=== PATIENT | male | born 1970 | race Caucasian/White ===

== ENCOUNTER 2017-02-17 13:40 | Emergency (ER) | payer SELFPAY ==
[~2017-02-17] VITALS: Ht 172.7 cm; Wt 81.0 kg
[~2017-02-17 13:40] MED LIST: BACT800T5 PO; CEPH-460 PO; DICL75TA PO; HYDR-3533 PO
[2017-02-17 13:44] VITALS: BP 132/81; PULSE 101; RESP 17; TEMP 98.6; O2SAT 98
--- NOTE | 2017-02-17 13:46 | PD ---
Physical Exam Date Seen by Provider: Feb 17, 2017 Time Seen by Provider: 13:45 Narrative 46 YOWM C/O SI AND ALCOHOL INTOXICATION H/O ALCOHOL ABUSE. VS REVIEWED WAITING FOR BED PLACEMENT Data Data Last Documented VS Vital Signs Date Time Temp Pulse Resp B/P Pulse Ox O2 Delivery O2 Flow Rate FiO2 02/17/17 13:44 98.6 101 17 132/81 98 MDM Supervised Visit with PAOLO: Raheel Irvin Feb 17, 2017 13:46
== END 2017-02-17 16:15 | disposition left against medical advice (07) ==
LOC: NED 13:40
DX: R45.851 Suicidal ideations (principal); F10.129 Alcohol abuse with intoxication, unspecified; Z53.21 Procedure and treatment not carried out due to patient leaving prior to being seen by health care provider
CPT/HCPCS: 99281

== ENCOUNTER 2017-02-17 20:09 | Emergency (ER) | payer SELFPAY ==
[~2017-02-17] VITALS: Ht 172.7 cm; Wt 70.0 kg
--- NOTE | 2017-02-17 20:34 | PD ---
HPI Chief Complaint: shortness of breath Time Seen by Provider: 20:27 Travel History International Travel<30 days: No Contact w/Intl Traveler<30days: No Traveled to known affect area: No History of Present Illness HPI 46-year-old male brought in by PD after complaining of chest pain after being arrested today. The patient was found huffing dust cell cleaner. On his way to the prison he told the police manager that he was having pain in his chest and wanted to go to the emergency department. When asked the patient about his chest pain he tells me it feels like anxiety. When I asked him to describe the pain a little bit further, he tells me that it is sharp. He is not sure if he has history of cardiac disease. He smokes. He denies doing any other drugs such as cocaine or crack. He tells me that he feels as though his sinuses are dripping and that he is having a difficult time breathing. PFSH Past Medical History Anxiety: Yes (HAS A HISTORY OF ANXIETY ATTACKS) Depression: Yes Diabetes: No Diminished Hearing: No Implanted Vascular Access Dvce: No Musculoskeletal: Yes (STS CHRONIC BACK PAIN) Psychiatric: Yes Social History Alcohol Use: Yes (12 PACK DAILY) Tobacco Use: Yes (PACK PER DAY) Substance Use: No Allergies-Medications (Allergen,Severity, Reaction): Coded Allergies: No Known Allergies (Verified , 02/17/17) Reported Meds & Prescriptions Reported Meds & Active Scripts Active No Active Prescriptions or Reported Medications Review of Systems Except as stated in HPI: all other systems reviewed are Neg Physical Exam Narrative GENERAL: Well-developed, well-nourished, comfortable, no apparent distress. SKIN: Focused skin assessment warm/dry. HEAD: Atraumatic. Normocephalic. EYES: Pupils equal and round. No scleral icterus. No injection or drainage. ENT: Mucous membranes pink and moist. NECK: Trachea midline. No JVD. CARDIOVASCULAR: Regular rate and rhythm. RESPIRATORY: No accessory muscle use. Clear to auscultation. Breath sounds equal bilaterally. GASTROINTESTINAL: Abdomen soft, non-tender, nondistended. MUSCULOSKELETAL: No obvious deformities. No clubbing. No cyanosis. No edema. NEUROLOGICAL: Awake and alert. No obvious cranial nerve deficits. Motor grossly within normal limits. Normal speech. PSYCHIATRIC: Keeps eyes closed. Data Data Last Documented VS Vital Signs Date Time Temp Pulse Resp B/P Pulse Ox O2 Delivery O2 Flow Rate FiO2 02/17/17 20:49 84 20 81 Room Air 02/17/17 20:49 152/93 02/17/17 20:44 98.1 Orders Electrocardiogram (02/17/17 20:31) Basic Metabolic Panel (Bmp) (02/17/17 20:31) Ckmb (Isoenzyme) Profile (02/17/17 20:31) Complete Blood Count With Diff (02/17/17 20:31) Magnesium (Mg) (02/17/17 20:31) Prothrombin Time / Inr (Pt) (02/17/17 20:31) Act Partial Throm Time (Ptt) (02/17/17 20:31) Troponin I (02/17/17 20:31) Chest, Single Ap (02/17/17 20:31) Ecg Monitoring (02/17/17 20:31) Iv Access Insert/Monitor (02/17/17 20:31) Oximetry (02/17/17 20:31) Aspirin Chew (Aspirin Chew) (02/17/17 20:45) Sodium Chloride 0.9% Flush (Ns Flush) (02/17/17 20:45) MDM Medical Decision Making Medical Screen Exam Complete: Yes Emergency Medical Condition: Yes Medical Record Reviewed: Yes Interpretation(s) EKG: Sinus, rate 79, normal axis, normal intervals, no acute ischemic abnormality. Differential Diagnosis ACS, pneumothorax, pericarditis, PE, pneumonia, musculoskeletal chest pain Narrative Course Vital signs show heart rate 94, blood pressure 152/93, pulse ox 98% on room air , oral temp of 98.1F. At approximately 9:25 PM after the police manager who placed the patient under arrest had left, the patient decided that he no longer want stay in the hospital and would like to leave AMA. Patient is not currently under arrest, and was given a misdemeanor violation. He understands that there are risks to leaving AMA including but not limited to and permanent disability. Labs pending at time of this decision. Chest x-ray was interpreted by me and shows no free air, no pneumothorax, no infiltrates. He has a capacity to make this decision. He was told that he can return at any time and should return for worsening symptoms or any other concerns. He was instructed to follow-up with a primary care physician this week. AMA: The risks of leaving against medical advice without further evaluation treatment were discussed with the patient. These risks include cardiac dysfunction, cardiac dysrhythmia, possible heart attack, possible stroke or . The patient indicated understanding of these risks and appeared to have the capacity to make this decision. Diagnosis Primary Impression: Left against medical advice Additional Impression: Chest pain Qualified Code: R07.9 - Chest pain, unspecified type Referrals: [facility] 1 day Additional Instructions: Follow-up with a primary care physician this week. Return to the emergency department for worsening symptoms or any other concerns. Scripts No Active Prescriptions or Reported Meds Disposition: 07 AGAINST MEDICAL ADVICE Condition: Stable Coy Stephen MD Feb 17, 2017 20:34
[2017-02-17 20:44] VITALS: BP 152/93; PULSE 94; RESP 18; TEMP 98.1; O2SAT 98
[2017-02-17] MEDS ORDERED: SODIUM CHLORIDE 0.9% FLUSH 10 ML FLUSH IVF PRN (20:45)
[2017-02-17] MEDS ORDERED: ASPIRIN 81 MG CHEW TAB PO ONE (20:45)
[2017-02-17 20:49] VITALS: BP 152/93; PULSE 82; RESP 18; O2SAT 99
[2017-02-17 21:30] LABS: APTT (PATIENT) 28.7 SEC (24.3-30.1); PROTHROMBIN TIME - PATIENT 11.1 SEC (9.8-11.6)
[2017-02-17 21:44] LABS: BASOPHIL # 0.1 TH/MM3 (0-0.2); BASOPHIL % 0.6 % (0.0-2.0); EOSINOPHIL # 0.1 TH/MM3 (0-0.4); HEMATOCRIT 43.8 % (39.0-51.0); HEMO FLAGS DIFF FINAL; LYMPH % 11.4 % (9.0-44.0); MEAN CELL VOLUME 93.5 FL (80.0-100.0); MEAN CORPUSCULAR HEMOGLOBIN 32.6 PG (27.0-34.0); MEAN CORPUSCULAR HGB CONC 34.8 % (32.0-36.0); MONO % 7.2 % (0.0-8.0); NEUT % 79.8 % (16.0-70.0); PLATELET COUNT 145 TH/MM3 (150-450); RED BLOOD COUNT 4.68 MIL/MM3 (4.50-5.90); RED CELL DISTRIBUTION WIDTH 13.1 % (11.6-17.2); WHITE BLOOD COUNT 8.7 TH/MM3 (4.0-11.0)
--- NOTE | 2017-02-17 22:01 | RADRPT ---
EXAM DATE/TIME: 02/17/2017 20:28 [facility] COMPARISON: No previous studies available for comparison. INDICATIONS : Shortness of breath MEDICAL HISTORY : Congestive heart failure. Chronic obstructive pulmonary disease. SURGICAL HISTORY : None. ENCOUNTER: Initial ACUITY: 2 weeks PAIN SCORE: 5/10 LOCATION: Bilateral chest FINDINGS: A single view of the chest demonstrates the lungs to be symmetrically aerated without evidence of mas s, infiltrate or effusion. The cardiomediastinal contours are unremarkable. Osseous structures are intact. CONCLUSION: No acute disease. Raheel West MD on February 17, 2017 at 21:59 Board Certified Radiologist. This report was verified electronically.
[2017-02-17 22:02] LABS: ANION GAP 6 MEQ/L (5-15); BICARBONATE 28.6 MEQ/L (21.0-32.0); BLOOD UREA NITROGEN 11 MG/DL (7-18); CHLORIDE 106 MEQ/L (98-107); GLOMERULAR FILTRATION RATE 134 ML/MIN (>89); MAGNESIUM 2.1 MG/DL (1.5-2.5); POTASSIUM 3.1 MEQ/L (3.5-5.1); SODIUM (NA) 141 MEQ/L (136-145)
[2017-02-17 22:06] LABS: CREATINE KINASE 689 U/L (39-308)
[2017-02-17 22:19] LABS: CKMB 8.4 NG/ML (0.5-3.6)
--- NOTE | 2017-02-18 14:51 | EKG ---
Date Performed: 02/17/2017 Time Performed: 20:45:33 PTAGE: 46 years EKG: Sinus rhythm NORMAL ECG PREVIOUS TRACING : 02/18/2011 21.51 Since previous tracing, no significant change noted DOCTOR: Hank Hightower Interpretating Date/Time 02/18/2017 14:50:10
== END 2017-02-17 21:39 | disposition left against medical advice (07) ==
LOC: NEDAMB 20:09 → NEPD 21:39
DX: R07.9 Chest pain, unspecified (principal); F41.9 Anxiety disorder, unspecified; F32.9 Major depressive disorder, single episode, unspecified; F17.200 Nicotine dependence, unspecified, uncomplicated
CPT/HCPCS: 71010; 80048; 82550; 82552; 83735; 84484; 85025; 85610; 85730; 93005; 99285

== ENCOUNTER 2017-03-28 17:58 | Emergency (ER) | payer SELFPAY ==
[2017-03-28 18:06] VITALS: BP 108/68; PULSE 85; RESP 18; TEMP 98.4; O2SAT 99
== END 2017-03-28 18:30 | disposition left against medical advice (07) ==
LOC: NED 17:58
DX: Z03.89 Encounter for observation for other suspected diseases and conditions ruled out (principal)
CPT/HCPCS: 99281

== ENCOUNTER 2017-04-01 07:34 | Inpatient (IN) | payer OTHER ==
[~2017-04-01] VITALS: Ht 170.2 cm; Wt 77.5 kg
[2017-04-01] VITALS (14 sets, daily range): PULSE 100–138; O2SAT 96–100
[2017-04-01] MEDS ORDERED: ceFAZolin 2 GM PREMIX 50 ML ONE (07:45)
[2017-04-01] MEDS ORDERED: DIPHTH/TETANUS/ACEL PERTUSSIS (BOOSTER) 0.5 ML VIAL/PFS IM ONE (07:45)
[2017-04-01] MEDS ORDERED: ONDANSETRON HCL 4 MG/2 ML VIAL ONE (07:46)
[2017-04-01] MEDS ORDERED: MORPHINE SULFATE 8 MG/ML INJ ONE (07:46)
[2017-04-01 07:58] LABS: I-STAT POTASSIUM 4.4 MMOL/L (3.5-4.9)
[2017-04-01] MEDS ORDERED: SUCCINYLCHOLINE CHLORIDE 200 MG/10 ML VIAL ONE (07:58)
[2017-04-01] MEDS ORDERED: ETOMIDATE 20 MG/10 ML VIAL ONE (07:58)
[2017-04-01 07:59] LABS: AUTOMATED NEUTROPHIL # 10.1 TH/MM3 (1.8-7.7); BASOPHIL # 0.2 TH/MM3 (0-0.2); BASOPHIL % 1.1 % (0.0-2.0); EOSINOPHIL # 0.3 TH/MM3 (0-0.4); EOSINOPHIL % 2.3 % (0.0-4.0); HEMATOCRIT 43.5 % (39.0-51.0); HEMO FLAGS DIFF FINAL; LYMPH % 19.7 % (9.0-44.0); LYMPHOCYTE # 2.8 TH/MM3 (1.0-4.8); MEAN CELL VOLUME 94.1 FL (80.0-100.0); MEAN CORPUSCULAR HEMOGLOBIN 32.2 PG (27.0-34.0); MEAN CORPUSCULAR HGB CONC 34.3 % (32.0-36.0); MONO % 5.8 % (0.0-8.0); NEUT % 71.1 % (16.0-70.0); PLATELET COUNT 346 TH/MM3 (150-450); RED BLOOD COUNT 4.63 MIL/MM3 (4.50-5.90); WHITE BLOOD COUNT 14.2 TH/MM3 (4.0-11.0)
[2017-04-01 08:05] LABS: APTT (PATIENT) 23.6 SEC (24.3-30.1); PROTHROMBIN TIME - PATIENT 10.7 SEC (9.8-11.6)
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
[2017-04-01] MEDS ORDERED: IOHEXOL 350 MG/ML 10 ML VIAL (for RAD DIAG) IVCONTRAST ONE (08:44)
[2017-04-01] MEDS ORDERED: ROCURONIUM INJ 50 MG/5 ML VIAL ONE (09:13)
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
--- NOTE | 2017-04-01 09:40 | RADRPT ---
EXAM DATE/TIME: 04/01/2017 08:11 [facility] COMPARISON: CT THORAX W CONTRAST, April 01, 2017, 8:30. CHEST SINGLE AP, April 01, 2017, 8:06. INDICATIONS : Left side chest tube placement for pneumothorax. MEDICAL HISTORY : None. SURGICAL HISTORY : None. ENCOUNTER: Subsequent ACUITY: 1 day PAIN SCORE: Non-responsive. LOCATION: Left chest FINDINGS: Single view of the chest inserts bilateral chest tubes. There is minimal residual pneumothorax in the right lung apex. There is pleural fluid along the apex of the left lung. Note is made of multiple ri ght-sided rib fractures and subcutaneous emphysema. ET tubes in good position The heart is normal in size. The lungs are clear. CONCLUSION: 1. Bilateral chest tubes in good position. 2. Endotracheal tube in good position. 3. Minimal amount of residual pneumothorax on the right. 4. Small amount of apical pleural fluid on the left. 5. Multiple right-sided rib fractures with subcutaneous emphysema. Shiva Forrest MD on April 01, 2017 at 9:37 Board Certified Radiologist. This report was verified electronically.
--- NOTE | 2017-04-01 09:41 | RADRPT ---
EXAM DATE/TIME: 04/01/2017 08:40 [facility] COMPARISON: CHEST SINGLE AP, April 01, 2017, 8:11. INDICATIONS : Reposition left side chest tube placement. MEDICAL HISTORY : None. SURGICAL HISTORY : None. ENCOUNTER: Subsequent ACUITY: 1 day PAIN SCORE: Non-responsive. LOCATION: Left chest FINDINGS: The chest tubes endotracheal tube and nasogastric tube are all in good position. The trace amount res idual pneumothorax which was seen on the right is no longer identified. There is minimal pleural flui d in the left lung apex. There multiple right-sided rib fractures and subcutaneous emphysema. The heart is normal in size. The lungs are clear. CONCLUSION: 1. Chest tubes, NG tube and endotracheal tube all in good position. Shiva Forrest MD on April 01, 2017 at 9:39 Board Certified Radiologist. This report was verified electronically.
[2017-04-01] MEDS ORDERED: BISACODYL 10 MG SUPP RECTAL PRN (09:45)
[2017-04-01] MEDS ORDERED: CHLORHEXIDINE GLUCONATE 2 % 1 PACK (2 CLOTHS) TOP PRN (09:45)
[2017-04-01] MEDS ORDERED: SENNOSIDES 8.6 MG TAB PO PRN (09:45)
[2017-04-01] MEDS ORDERED: PROPOFOL 1000 MG/100 ML INJ 100 ML IV PRN (09:45)
[2017-04-01] MEDS ORDERED: MAGNESIUM HYDROXIDE SUSP 30 ML CUP PO PRN (09:45)
[2017-04-01] MEDS ORDERED: fentaNYL DRIP 250 ML IV PRN (09:45)
[2017-04-01] MEDS ORDERED: LACTULOSE SYRUP 20 GM/30 ML CUP PO PRN (09:45)
[2017-04-01] MEDS ORDERED: SODIUM CHLORIDE 0.9% FLUSH 10 ML FLUSH IV FLUSH PRN (09:45)
[2017-04-01] MEDS ORDERED: MISCELLANEOUS NURSING INFORMATION XX SCH (09:45)
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
[2017-04-01 10:12] LABS: BLOOD GAS BASE EXCESS -4.3 mmol/L (-2-2); BLOOD GAS CARBOXYHEMOGLOBIN 2.1 % (0-4); BLOOD GAS HCO3 23 mmol/L (22-26); BLOOD GAS METHEMOGLOBIN 1.1 % (0-2); BLOOD GAS O2 HGB SATURATION 96 % (90-100); BLOOD GAS OXYGEN CONTENT 19.1 Vol % (12.0-20.0); BLOOD GAS PCO2 61 mmHg (38-42); BLOOD GAS PO2 500 mmHg (61-120); BLOOD GAS TOTAL HGB 13.2 G/DL (12.0-16.0); TEMP CORR TO 98.6
[2017-04-01 10:13] LABS: CRITICAL VALUE YES; OXYGEN DEVICE VENT
[2017-04-01 10:14] LABS: DRAW SITE RT RADIAL; FIO2 100 %; NUMBER OF ARTERIAL PUNCTURES 1; STAT NO; ULNAR PULSE PRESENT
[2017-04-01] MEDS ORDERED: LORazepam 2 MG/ML VIAL IV PUSH PRN (10:15)
[2017-04-01] MEDS: fentaNYL 2,500 MCG/NS 250 ML IV PRN (10:28)
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
[2017-04-01] MEDS ORDERED: PROPOFOL 1000 MG/100 ML IV PRN (10:30)
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
[2017-04-01] MEDS: SODIUM CHLOR 0.9% 1000 ML INJ 1,000 ML IV SCH ×2 (11:09→20:30)
[2017-04-01] MEDS: PANTOPRAZOLE SODIUM 40 MG VIAL IV PUSH SCH (11:09)
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
[2017-04-01] MEDS: PROPOFOL 1000 MG/100 ML INJ 100 ML IV PRN ×2 (12:41→21:57)
[2017-04-01] MEDS ORDERED: ARTIFICIAL TEARS OPTH SOLN 15 ML BTL EACH EYE PRN (14:45)
[2017-04-01] MEDS: BACITRACIN TOP OINT 15 GM TUBE TOPICAL SCH ×2 (14:58→20:16)
[2017-04-01] MEDS: SILVER SULFADIAZINE 1% CR 400 GM JAR TOPICAL SCH (14:58)
[2017-04-01 15:00] LABS: BLOOD GAS BASE EXCESS -0.4 mmol/L (-2-2); BLOOD GAS CARBOXYHEMOGLOBIN 1.5 % (0-4); BLOOD GAS HCO3 25 mmol/L (22-26); BLOOD GAS METHEMOGLOBIN 0.9 % (0-2); BLOOD GAS O2 HGB SATURATION 96 % (90-100); BLOOD GAS OXYGEN CONTENT 17.5 Vol % (12.0-20.0); BLOOD GAS PCO2 53 mmHg (38-42); BLOOD GAS PO2 131 mmHg (61-120); BLOOD GAS TOTAL HGB 12.8 G/DL (12.0-16.0); CRITICAL VALUE YES; DRAW SITE RT RADIAL; FIO2 40 %; NUMBER OF ARTERIAL PUNCTURES 1; OXYGEN DEVICE VENTILATOR; STAT NO; TEMP CORR TO 98.6; ULNAR PULSE PRESENT; VENT SETTINGS PRVC/AC
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
[2017-04-01] MEDS: CHLORHEXIDINE GLUCONATE 2 % 1 PACK (2 CLOTHS) TOP SCH (19:59)
[2017-04-01] MEDS: DOCUSATE SODIUM 50 MG/SENNA 8.6 MG TAB PO SCH ×2 (20:15→20:45)
[2017-04-01] MEDS: SODIUM CHLORIDE 0.9% FLUSH 10 ML FLUSH IV FLUSH SCH (20:16)
[2017-04-01] MEDS: ENOXAPARIN SODIUM 30 MG/0.3 ML SYRINGE SQ SCH (20:16)
[2017-04-01] MEDS: RESP: ALBUTEROL 2.5 MG/IPRATROPIUM 0.5 MG NEB (SCH) NEB (20:38)
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
[2017-04-02] VITALS (18 sets, daily range): BP systolic 92–110; BP diastolic 50–66; PULSE 90–106; RESP 20; TEMP 98.2–99.6; O2SAT 100
[2017-04-02] MEDS: fentaNYL 2,500 MCG/NS 250 ML IV PRN ×2 (00:43→15:18)
[2017-04-02] MEDS: RESP: ALBUTEROL 2.5 MG/IPRATROPIUM 0.5 MG NEB (SCH) NEB ×6 (00:57→20:54)
[2017-04-02] MEDS: SODIUM CHLOR 0.9% 1000 ML INJ 1,000 ML IV SCH (02:52)
[2017-04-02 05:28] LABS: AUTOMATED NEUTROPHIL # 6.3 TH/MM3 (1.8-7.7); BASOPHIL % 0.3 % (0.0-2.0); EOSINOPHIL # 0.1 TH/MM3 (0-0.4); EOSINOPHIL % 1.1 % (0.0-4.0); HEMATOCRIT 34.7 % (39.0-51.0); HEMO FLAGS DIFF FINAL; LYMPH % 14.4 % (9.0-44.0); LYMPHOCYTE # 1.2 TH/MM3 (1.0-4.8); MEAN CORPUSCULAR HEMOGLOBIN 32.3 PG (27.0-34.0); MEAN CORPUSCULAR HGB CONC 33.6 % (32.0-36.0); MONO % 9.9 % (0.0-8.0); NEUT % 74.3 % (16.0-70.0); PLATELET COUNT 178 TH/MM3 (150-450); RED BLOOD COUNT 3.61 MIL/MM3 (4.50-5.90); RED CELL DISTRIBUTION WIDTH 12.9 % (11.6-17.2); WHITE BLOOD COUNT 8.5 TH/MM3 (4.0-11.0)
--- NOTE | 2017-04-02 05:37 | RADRPT ---
EXAM DATE/TIME: 04/02/2017 03:59 [facility] COMPARISON: CHEST SINGLE AP, April 01, 2017, 8:40. CT THORAX W CONTRAST, April 01, 2017, 8:30. INDICATIONS : Trauma, short of breath. MEDICAL HISTORY : None. SURGICAL HISTORY : None. ENCOUNTER: Subsequent ACUITY: 2 days PAIN SCORE: Non-responsive. LOCATION: Bilateral chest FINDINGS: Multiple right-sided rib fractures noted within the right chest wall. Bilateral chest tubes without s ignificant pneumothorax. Endotracheal tube in good position. Nasogastric tube coiled in stomach. Mini mal airspace disease bilaterally mostly at the right lung base. CONCLUSION: 1. Bilateral chest tubes without significant pneumothorax. Multiple right rib fractures. Minimal airs pace disease in the lungs. No significant change since April 01. Raheel West MD on April 02, 2017 at 5:35 Board Certified Radiologist. This report was verified electronically.
[2017-04-02 06:10] LABS: BICARBONATE 26.4 MEQ/L (21.0-32.0); CALCIUM-PROTEIN CORRECTED 7.9 MG/DL (8.5-10.1); POTASSIUM 4.2 MEQ/L (3.5-5.1); TOTAL BILIRUBIN ADULT 0.6 MG/DL (0.2-1.0)
[2017-04-02 06:17] LABS: BLOOD GAS BASE EXCESS 0.1 mmol/L (-2-2); BLOOD GAS CARBOXYHEMOGLOBIN 1.2 % (0-4); BLOOD GAS HCO3 25 mmol/L (22-26); BLOOD GAS METHEMOGLOBIN 0.9 % (0-2); BLOOD GAS O2 HGB SATURATION 97 % (90-100); BLOOD GAS PCO2 50 mmHg (38-42); BLOOD GAS PO2 135 mmHg (61-120); BLOOD GAS TOTAL HGB 10.9 G/DL (12.0-16.0); CRITICAL VALUE NO; DRAW SITE RT RADIAL; FIO2 40 %; NUMBER OF ARTERIAL PUNCTURES 1; OXYGEN DEVICE VENTILATOR; STAT NO; TEMP CORR TO 98.6; ULNAR PULSE PRESENT; VENT SETTINGS PRVC20/550/1.0/+5
[2017-04-02] MEDS ORDERED: MAGNESIUM OXIDE 400 MG TAB PO PRN (08:30)
[2017-04-02] MEDS ORDERED: SODIUM PHOSPHATE INJ 30 MMOL in SODIUM CHLOR 0.9% 250 ML INJ 240 ML IV PRN (08:30)
[2017-04-02] MEDS ORDERED: MAGNESIUM SULFATE INJ 4 GM in SODIUM CHLORIDE 0.9% INJ 92 ML IV PRN (08:30)
[2017-04-02] MEDS ORDERED: POTASSIUM CHLOR 20 MEQ PREMIX 100 ML IV PRN ×2 (08:30)
[2017-04-02] MEDS ORDERED: POTASSIUM PHOSPHATE MONOBASIC 500 MG TAB PO PRN (08:30)
[2017-04-02] MEDS ORDERED: MAGNESIUM SULFATE INJ 2 GM in SODIUM CHLORIDE 0.9% INJ 96 ML IV PRN (08:30)
[2017-04-02] MEDS ORDERED: POTASSIUM PHOSPHATE MONOBASIC 500 MG TAB PO/TUBE PRN (08:30)
[2017-04-02] MEDS ORDERED: POTASSIUM CHLOR 40 MEQ PREMIX 100 ML IV PRN ×2 (08:30)
[2017-04-02] MEDS: PANTOPRAZOLE SODIUM 40 MG VIAL IV PUSH SCH (08:35)
[2017-04-02] MEDS: DOCUSATE SODIUM 50 MG/SENNA 8.6 MG TAB PO SCH ×2 (08:35→20:25)
[2017-04-02] MEDS: ENOXAPARIN SODIUM 30 MG/0.3 ML SYRINGE SQ SCH ×2 (08:36→20:24)
[2017-04-02] MEDS: SODIUM CHLORIDE 0.9% FLUSH 10 ML FLUSH IV FLUSH SCH ×2 (08:36→20:25)
[2017-04-02] MEDS: MAGNESIUM HYDROXIDE SUSP 30 ML CUP PO SCH ×2 (08:45→20:24)
[2017-04-02] MEDS: BACITRACIN TOP OINT 15 GM TUBE TOPICAL SCH ×2 (09:00→20:25)
[2017-04-02] MEDS: SILVER SULFADIAZINE 1% CR 400 GM JAR TOPICAL SCH (09:00)
[2017-04-02] MEDS: MULTIVITAMIN INJ 10 ML, THIAMINE INJ 100 MG, FOLIC ACID INJ 1 MG in SODIUM CHLORID 0.9%... IV SCH (10:00)
[2017-04-02] MEDS: PROPOFOL 1000 MG/100 ML INJ 100 ML IV PRN ×2 (12:09→23:25)
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
--- NOTE | 2017-04-02 13:54 | PD.ORT.PN ---
Subjective Subjective Remarks Patient intubated and sedated. Objective Vitals Vital Signs Date Time Temp Pulse Resp B/P (MAP) Pulse Ox O2 Delivery O2 Flow Rate FiO2 04/02/17 12:00 90 04/02/17 12:00 40 04/02/17 12:00 98.2 90 20 96/53 (67) 100 04/02/17 11:40 100 40 04/02/17 10:00 96 04/02/17 08:34 100 40 04/02/17 08:00 101 04/02/17 08:00 98.6 101 20 110/66 (81) 100 04/02/17 08:00 40 04/02/17 07:00 100 Mechanical Ventilator 40 04/02/17 06:00 106 04/02/17 05:12 100 40 04/02/17 04:00 102 04/02/17 04:00 40 04/02/17 02:00 106 04/02/17 00:57 100 40 04/02/17 00:00 40 04/02/17 00:00 106 04/01/17 22:00 109 04/01/17 20:39 100 40 04/01/17 20:00 40 04/01/17 20:00 106 04/01/17 19:00 100 Mechanical Ventilator 40 04/01/17 18:00 100 04/01/17 16:00 103 04/01/17 15:43 100 40 04/01/17 14:00 108 I/O 04/01/17 04/01/17 04/01/17 04/02/17 04/02/17 04/02/17 07:00 15:00 23:00 07:00 15:00 23:00 Intake Total 98 ml 1187 ml 1576 ml Output Total 786 ml 365 ml Balance 98 ml 401 ml 1211 ml Intake IV Total 98 ml 1187 ml 1576 ml Output Urine Total 700 ml 350 ml Gastric Drainage Total 50 ml 0 ml Chest Tube Drainage Total 36 ml 15 ml # Bowel Movements 0 0 Result Diagram: 04/02/17 0509 04/02/17 0509 Imaging Last 24 hours Impressions Chest X-Ray 04/02/17 0600 Signed Impressions: Service Date/Time: Sunday, April 02, 2017 03:59 - CONCLUSION: 1. Bilateral chest tubes without significant pneumothorax. Multiple right rib fractures. Minimal airspace disease in the lungs. No significant change since April 01. Raheel West MD Objective Remarks The patient is intubated bandage overlying forehead Cervical collar in place Normal clinical alignment of the sternoclavicular joint course of the clavicle acromioclavicular joint shoulders elbows wrists Multiple dressings in place were abrasions are noted Bilateral chest tubes in place Right thoracic rib cage slightly flail consistent with multiple fractures Abdomen is soft The abrasion/avulsion/laceration right lower abdomen/iliac crest region Pelvis is stable to internal and external rotation without crepitation Good motion of hips knees and ankles without crepitation Multiple bandages in place throughout the lower extremities were abrasions are present Pulses intact all 4 extremities No peripheral edema at this point Patient is intubated and sedated and is not responding to palpation and therefore a thorough neurologic examination cannot be performed Prior documentation did not identify any neurologic involvement of the extremities Assessment & Plan Problem List: (1) Fracture of spinous process of thoracic vertebra ICD Codes: S22.008A - Other fracture of unspecified thoracic vertebra, initial encounter for closed fracture Status: Acute Qualifiers: Qualified Codes: S22.008A - Other fracture of unspecified thoracic vertebra , initial encounter for closed fracture (2) Ribs, multiple fractures ICD Codes: S22.49XA - Multiple fractures of ribs, unspecified side, initial encounter for closed fracture Status: Acute Qualifiers: Qualified Codes: S22.43XA - Multiple fractures of ribs, bilateral, initial encounter for closed fracture (3) Bilateral pneumothoraces ICD Codes: J93.9 - Pneumothorax, unspecified Status: Acute (4) Nasal bone fracture ICD Codes: S02.2XXA - Fracture of nasal bones, initial encounter for closed fracture Status: Acute Qualifiers: Qualified Codes: S02.2XXA - Fracture of nasal bones, initial encounter for closed fracture (5) Forehead laceration ICD Codes: S01.81XA - Laceration without foreign body of other part of head, initial encounter Status: Acute Qualifiers: Qualified Codes: S01.81XA - Laceration without foreign body of other part of head, initial encounter (6) Fracture of iliac wing ICD Codes: S32.309A - Unspecified fracture of unspecified ilium, initial encounter for closed fracture Status: Acute Qualifiers: Qualified Codes: S32.302A - Unspecified fracture of left ilium, initial encounter for closed fracture (7) Polysubstance dependence in controlled environment ICD Codes: F19.20 - Other psychoactive substance dependence, uncomplicated (8) Left acetabular fracture ICD Codes: S32.402A - Unspecified fracture of left acetabulum, initial encounter for closed fracture (9) Fracture of left superior pubic ramus ICD Codes: S32.512A - Fracture of superior rim of left pubis, initial encounter for closed fracture (10) Fracture of left inferior pubic ramus ICD Codes: S32.592A - Other specified fracture of left pubis, initial encounter for closed fracture Assessment and Plan ICU management The iliac wing fracture which extends into the left acetabulum radiographically appears unstable. However on physical examination there is no gross instability. Surgical and nonoperative management are both considerations. The multiple rib fractures and spinous process fractures should heal with nonoperative management Currently recommend continuing bedrest and observation We will have Dr. Coughlin take over patient's care on Tuesday. Continue to monitor Roland Branham Apr 02, 2017 13:54
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
[2017-04-02 19:08] LABS: BLOOD, URINE SMALL (NEG); GLUCOSE,URINE NEG (NEG); KETONE, URINE 10 mg/dL (NEG); MUCUS URINE FEW /lpf (OCC); NITRITE,URINE NEG (NEG); PH, URINE 5.5 (5.0-8.5); SQUAMOUS EPITHELIAL CELL URINE 1 /hpf (0-5); URINE COLOR YELLOW (YELLW/STRAW)
[2017-04-02 19:09] LABS: COMMENT (UR) CATH-CULTURE IND; CULTURE IF INDICATED CATH CULTURE IND
[2017-04-03] VITALS (18 sets, daily range): BP systolic 92–101; BP diastolic 51–59; PULSE 88–120; RESP 20; TEMP 99.9–102; O2SAT 97–100
[2017-04-03] MEDS: RESP: ALBUTEROL 2.5 MG/IPRATROPIUM 0.5 MG NEB (SCH) NEB ×6 (00:10→20:54)
[2017-04-03] MEDS: fentaNYL 2,500 MCG/NS 250 ML IV PRN ×2 (03:41→13:59)
[2017-04-03] MEDS: CHLORHEXIDINE GLUCONATE 2 % 1 PACK (2 CLOTHS) TOP SCH (04:00)
[2017-04-03 05:28] LABS: BLOOD GAS BASE EXCESS 1.3 mmol/L (-2-2); BLOOD GAS CARBOXYHEMOGLOBIN 1.1 % (0-4); BLOOD GAS HCO3 27 mmol/L (22-26); BLOOD GAS METHEMOGLOBIN 0.8 % (0-2); BLOOD GAS O2 HGB SATURATION 95 % (90-100); BLOOD GAS OXYGEN CONTENT 13.3 Vol % (12.0-20.0); BLOOD GAS PCO2 53 mmHg (38-42); BLOOD GAS PO2 90 mmHg (61-120); BLOOD GAS TOTAL HGB 9.9 G/DL (12.0-16.0); CRITICAL VALUE YES; DRAW SITE RT RADIAL; FIO2 40 %; NUMBER OF ARTERIAL PUNCTURES 1; OXYGEN DEVICE VENTILATOR; STAT NO; TEMP CORR TO 98.6; ULNAR PULSE PRESENT; VENT SETTINGS 20/550/IT1.0/5PEEP
--- NOTE | 2017-04-03 05:38 | RADRPT ---
EXAM DATE/TIME: 04/03/2017 03:51 [facility] COMPARISON: CHEST SINGLE AP, April 02, 2017, 3:59. INDICATIONS : Evaluate for pneumothorax MEDICAL HISTORY : None. SURGICAL HISTORY : None. ENCOUNTER: Subsequent ACUITY: 3 days PAIN SCORE: Non-responsive. LOCATION: Bilateral chest FINDINGS: A right sided apical pneumothorax has developed with about 2.6 cm of pleural separation. Right chest tube should be placed on suction or repositioned. Again seen are multiple right rib fractures and air in the right chest wall. Right basilar airspace disease is stable to slightly increased. There is also a left chest tube without significant pneumothorax. Minimal left basilar atelectasis. E ndotracheal tube and nasogastric tube unchanged. CONCLUSION: 1. Development of small right pneumothorax with 2.6 cm pleural separation superiorly. Right chest tub e should be placed on suction or repositioned. Raheel West MD on April 03, 2017 at 5:34 Board Certified Radiologist. This report was verified electronically.
[2017-04-03] MEDS: PROPOFOL 1000 MG/100 ML INJ 100 ML IV PRN ×3 (07:11→23:45)
[2017-04-03] MEDS: LACTULOSE SYRUP 20 GM/30 ML CUP PO SCH (07:59)
[2017-04-03] MEDS: ENOXAPARIN SODIUM 30 MG/0.3 ML SYRINGE SQ SCH ×2 (08:00→21:28)
[2017-04-03] MEDS: BACITRACIN TOP OINT 15 GM TUBE TOPICAL SCH ×2 (08:01→21:29)
[2017-04-03] MEDS: PANTOPRAZOLE SODIUM 40 MG VIAL IV PUSH SCH (08:01)
[2017-04-03] MEDS: DOCUSATE SODIUM 50 MG/SENNA 8.6 MG TAB PO SCH ×2 (08:01→21:28)
[2017-04-03] MEDS: ACETAMINOPHEN 325 MG TAB PO PRN ×2 (08:01→21:28)
[2017-04-03] MEDS: MAGNESIUM HYDROXIDE SUSP 30 ML CUP PO SCH ×2 (08:45→21:28)
[2017-04-03] MEDS: SODIUM CHLORIDE 0.9% FLUSH 10 ML FLUSH IV FLUSH SCH ×2 (09:00→21:29)
[2017-04-03 09:02] LABS: BASOPHIL % 0.7 % (0.0-2.0); EOSINOPHIL % 0.2 % (0.0-4.0); HEMATOCRIT 28.3 % (39.0-51.0); HEMO FLAGS DIFF FINAL; LYMPH % 4.5 % (9.0-44.0); LYMPHOCYTE # 0.3 TH/MM3 (1.0-4.8); MEAN CELL VOLUME 95.5 FL (80.0-100.0); MEAN CORPUSCULAR HEMOGLOBIN 32.5 PG (27.0-34.0); MONO % 5.9 % (0.0-8.0); NEUT % 88.7 % (16.0-70.0); PLATELET COUNT 125 TH/MM3 (150-450); RED BLOOD COUNT 2.96 MIL/MM3 (4.50-5.90); RED CELL DISTRIBUTION WIDTH 12.9 % (11.6-17.2); WHITE BLOOD COUNT 6.7 TH/MM3 (4.0-11.0)
[2017-04-03 09:17] LABS: ANION GAP 7 MEQ/L (5-15); AST (GOT) 79 U/L (15-37); BICARBONATE 27.2 MEQ/L (21.0-32.0); BLOOD UREA NITROGEN 15 MG/DL (7-18); CHLORIDE 111 MEQ/L (98-107); GLOMERULAR FILTRATION RATE 110 ML/MIN (>89); POTASSIUM 3.7 MEQ/L (3.5-5.1); SODIUM (NA) 145 MEQ/L (136-145)
[2017-04-03 09:20] LABS: ALKALINE PHOSPHATASE 44 U/L (45-117); ALT (GPT) 44 U/L (12-78); TOTAL BILIRUBIN ADULT 0.6 MG/DL (0.2-1.0)
[2017-04-03] MEDS: MULTIVITAMIN INJ 10 ML, THIAMINE INJ 100 MG, FOLIC ACID INJ 1 MG in SODIUM CHLORID 0.9%... IV SCH (09:45)
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
--- NOTE | 2017-04-03 13:39 | PD.ORT.PN ---
Subjective Subjective Remarks Patient intubated. Awake. Able to follow simple commands. Objective Vitals Vital Signs Date Time Temp Pulse Resp B/P (MAP) Pulse Ox O2 Delivery O2 Flow Rate FiO2 04/03/17 12:50 100 40 04/03/17 12:00 100.2 105 20 97/54 (68) 100 04/03/17 12:00 105 04/03/17 12:00 40 04/03/17 10:00 110 04/03/17 08:54 99 40 04/03/17 08:00 102.0 116 20 101/51 (68) 97 04/03/17 08:00 90 04/03/17 08:00 40 04/03/17 07:00 97 Mechanical Ventilator 40 04/03/17 06:00 120 04/03/17 04:28 99 40 04/03/17 04:00 40 04/03/17 04:00 99.9 100 20 99/58 (72) 100 04/03/17 04:00 98 04/03/17 02:00 88 04/03/17 00:10 100 40 04/03/17 00:00 100 04/03/17 00:00 100.6 100 20 93/54 (67) 100 04/03/17 00:00 40 04/02/17 22:00 100 04/02/17 20:54 100 40 04/02/17 20:00 99.6 102 20 97/58 (71) 100 04/02/17 20:00 102 04/02/17 20:00 40 04/02/17 19:00 100 Mechanical Ventilator 40 04/02/17 18:00 90 04/02/17 17:48 100 40 04/02/17 16:00 90 04/02/17 16:00 40 04/02/17 16:00 99.0 101 20 92/50 (64) 100 04/02/17 14:00 90 I/O 04/02/17 04/02/17 04/02/17 04/03/17 04/03/17 04/03/17 07:00 15:00 23:00 07:00 15:00 23:00 Intake Total 1576 ml 811 ml 384.5 ml Output Total 365 ml 500 ml 376 ml Balance 1211 ml 811 ml -500 ml 8.5 ml Intake IV Total 1576 ml 811 ml 384.5 ml Output Urine Total 350 ml 400 ml 350 ml Gastric Drainage Total 0 ml 0 ml 0 ml Chest Tube Drainage Total 15 ml 100 ml 26 ml # Bowel Movements 0 0 0 Result Diagram: 04/03/1742 04/03/17 0842 Imaging Last 24 hours Impressions Chest X-Ray 04/02/17 0600 Signed Impressions: Service Date/Time: Tuesday, April 02, 2017 03:59 - CONCLUSION: 1. Bilateral chest tubes without significant pneumothorax. Multiple right rib fractures. Minimal airspace disease in the lungs. No significant change since April 01. Raheel West MD Objective Remarks Cervical collar in place Normal clinical alignment of the sternoclavicular joint course of the clavicle acromioclavicular joint shoulders elbows wrists Multiple dressings in place were abrasions are noted Bilateral chest tubes in place Right thoracic rib cage slightly flail consistent with multiple fractures Abdomen is soft The abrasion/avulsion/laceration right lower abdomen/iliac crest region Pelvis is stable to internal and external rotation without crepitation Good motion of hips knees and ankles without crepitation Multiple bandages in place throughout the lower extremities were abrasions are present Pulses intact all 4 extremities No peripheral edema at this point Able to dorsiflex and plantarflex toes Assessment & Plan Problem List: (1) Fracture of spinous process of thoracic vertebra ICD Codes: S22.008A - Other fracture of unspecified thoracic vertebra, initial encounter for closed fracture Status: Acute Qualifiers: Qualified Codes: S22.008A - Other fracture of unspecified thoracic vertebra , initial encounter for closed fracture (2) Ribs, multiple fractures ICD Codes: S22.49XA - Multiple fractures of ribs, unspecified side, initial encounter for closed fracture Status: Acute Qualifiers: Qualified Codes: S22.43XA - Multiple fractures of ribs, bilateral, initial encounter for closed fracture (3) Bilateral pneumothoraces ICD Codes: J93.9 - Pneumothorax, unspecified Status: Acute (4) Nasal bone fracture ICD Codes: S02.2XXA - Fracture of nasal bones, initial encounter for closed fracture Status: Acute Qualifiers: Qualified Codes: S02.2XXA - Fracture of nasal bones, initial encounter for closed fracture (5) Forehead laceration ICD Codes: S01.81XA - Laceration without foreign body of other part of head, initial encounter Status: Acute Qualifiers: Qualified Codes: S01.81XA - Laceration without foreign body of other part of head, initial encounter (6) Fracture of iliac wing ICD Codes: S32.309A - Unspecified fracture of unspecified ilium, initial encounter for closed fracture Status: Acute Qualifiers: Qualified Codes: S32.302A - Unspecified fracture of left ilium, initial encounter for closed fracture (7) Polysubstance dependence in controlled environment ICD Codes: F19.20 - Other psychoactive substance dependence, uncomplicated (8) Left acetabular fracture ICD Codes: S32.402A - Unspecified fracture of left acetabulum, initial encounter for closed fracture (9) Fracture of left superior pubic ramus ICD Codes: S32.512A - Fracture of superior rim of left pubis, initial encounter for closed fracture (10) Fracture of left inferior pubic ramus ICD Codes: S32.592A - Other specified fracture of left pubis, initial encounter for closed fracture Assessment and Plan ICU management The iliac wing fracture which extends into the left acetabulum radiographically appears unstable. However on physical examination there is no gross instability. Surgical and nonoperative management are both considerations. The multiple rib fractures and spinous process fractures should heal with nonoperative management Currently recommend continuing bedrest and observation We will have Dr. Coughlin take over patient's care on Tuesday. Continue to monitor Roland Branham Apr 03, 2017 13:39
--- NOTE | 2017-04-03 21:46 | RADRPT ---
EXAM DATE/TIME: 04/03/2017 20:52 [facility] COMPARISON: CHEST SINGLE AP, April 03, 2017, 3:51. INDICATIONS : Chest tube placement. MEDICAL HISTORY : None. SURGICAL HISTORY : None. ENCOUNTER: Subsequent ACUITY: 4 - 6 days PAIN SCORE: Non-responsive. LOCATION: Left chest FINDINGS: Right chest drainage tube unchanged in position the upper medial chest. Right apical pneumothorax is stable in size at 2.4 cm. The left chest drainage tube remains projected at the left apex and tiny pneumothorax measuring 6 mm is stable. Patchy areas of infiltrate in the perihilar region bilaterall y similar to prior. Both hemidiaphragms are well delineated. ET tube tip well above the rani. Ga stric tube tip and side-port project within the stomach. CONCLUSION: Bilateral chest tubes unchanged in position. Stable bilateral pneumothoraces measuring 2.4 cm and th e right and 6 mm on the left. Kobe Morris MD on April 03, 2017 at 21:44 Board Certified Radiologist. This report was verified electronically.
[2017-04-04] VITALS (19 sets, daily range): BP systolic 93–102; BP diastolic 51–53; PULSE 90–110; RESP 20; TEMP 99.1–101.5; O2SAT 94–100
[2017-04-04] MEDS: RESP: ALBUTEROL 2.5 MG/IPRATROPIUM 0.5 MG NEB (SCH) NEB ×6 (00:21→22:19)
[2017-04-04] MEDS: fentaNYL 2,500 MCG/NS 250 ML IV PRN ×2 (00:42→13:53)
[2017-04-04] MEDS: CHLORHEXIDINE GLUCONATE 2 % 1 PACK (2 CLOTHS) TOP SCH (04:00)
[2017-04-04 05:29] LABS: BLOOD GAS BASE EXCESS 2.6 mmol/L (-2-2); BLOOD GAS CARBOXYHEMOGLOBIN 1.3 % (0-4); BLOOD GAS HCO3 27 mmol/L (22-26); BLOOD GAS METHEMOGLOBIN 0.4 % (0-2); BLOOD GAS O2 HGB SATURATION 92 % (90-100); BLOOD GAS PCO2 47 mmHg (38-42); BLOOD GAS PO2 66 mmHG (61-120); TEMP CORR TO 98.6
[2017-04-04 05:30] LABS: CRITICAL VALUE NO; DRAW SITE RT RADIAL; FIO2 40 %; NUMBER OF ARTERIAL PUNCTURES 1; OXYGEN DEVICE VENTILATOR; STAT NO; ULNAR PULSE PRESENT; VENT SETTINGS PRVC20/550/1.0/+5
[2017-04-04 05:42] LABS: AUTOMATED NEUTROPHIL # 3.4 TH/MM3 (1.8-7.7); BASOPHIL % 0.2 % (0.0-2.0); EOSINOPHIL % 0.4 % (0.0-4.0); HEMATOCRIT 22.9 % (39.0-51.0); HEMO FLAGS DIFF FINAL; LYMPHOCYTE # 0.5 TH/MM3 (1.0-4.8); MEAN CORPUSCULAR HEMOGLOBIN 32.7 PG (27.0-34.0); MEAN CORPUSCULAR HGB CONC 34.1 % (32.0-36.0); MONO % 8.2 % (0.0-8.0); NEUT % 80.2 % (16.0-70.0); PLATELET COUNT 117 TH/MM3 (150-450); RED BLOOD COUNT 2.38 MIL/MM3 (4.50-5.90); RED CELL DISTRIBUTION WIDTH 13.1 % (11.6-17.2); WHITE BLOOD COUNT 4.2 TH/MM3 (4.0-11.0)
[2017-04-04 06:15] LABS: BICARBONATE 28.1 MEQ/L (21.0-32.0); CALCIUM-PROTEIN CORRECTED 8.3 MG/DL (8.5-10.1); POTASSIUM 3.8 MEQ/L (3.5-5.1); TOTAL BILIRUBIN ADULT 0.8 MG/DL (0.2-1.0)
--- NOTE | 2017-04-04 06:27 | RADRPT ---
EXAM DATE/TIME: 04/04/2017 05:12 [facility] COMPARISON: CHEST SINGLE AP, April 03, 2017, 20:52. INDICATIONS : Short of breath. MEDICAL HISTORY : Non-responsive. SURGICAL HISTORY : Non-responsive. ENCOUNTER: Subsequent ACUITY: 3 days PAIN SCORE: 0/10 LOCATION: Bilateral chest FINDINGS: Bilateral pulmonary opacities are present, midlung and basilar predominant on the right and more gene ralized on the left. Both sides are worse in the interim. Bilateral chest tubes remain in place. No p neumothorax seen on the left. There is a small apical pneumothorax on the right, about the same size. No mediastinal shift. Endotracheal tube tip is about 5 cm above the rani. Nasogastric tube courses into the stomach. Right chest wall emphysema again noted. CONCLUSION: Increasing bilateral airspace disease. Lines and tubes unchanged, including bilateral chest tubes. Sm all right pneumothorax not significantly changed. Jose Redding MD on April 04, 2017 at 6:24 Board Certified Radiologist. This report was verified electronically.
[2017-04-04] MEDS: PROPOFOL 1000 MG/100 ML INJ 100 ML IV PRN ×2 (07:11→23:19)
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
[2017-04-04] MEDS: SODIUM CHLOR 0.9% 1000 ML INJ 1,000 ML IV SCH ×2 (08:00→15:55)
[2017-04-04] MEDS ORDERED: SODIUM CHLORIDE 0.9% IV SCH (08:00)
[2017-04-04] MEDS ORDERED: TRANEXAMIC ACID IV SCH (08:00)
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
[2017-04-04] MEDS ORDERED: VANCOMYCIN HCL 1000 MG VIAL ONE (08:11)
[2017-04-04] MEDS ORDERED: ceFAZolin 2 GM PREMIX 50 ML ONE (08:11)
[2017-04-04] MEDS ORDERED: GENTAMICIN SULFATE 80 MG/2 ML VIAL ONE (08:12)
[2017-04-04] MEDS ORDERED: SODIUM CHLOR 0.9% 250 ML INJ 250 ML ONE (08:12)
[2017-04-04] MEDS: ACETAMINOPHEN 325 MG TAB PO PRN (08:20)
[2017-04-04] MEDS: PIPERACIL-TAZO 3.375 GM PREMIX 50 ML IV SCH ×3 (08:20→20:20)
[2017-04-04] MEDS: MAGNESIUM HYDROXIDE SUSP 30 ML CUP PO SCH ×2 (08:45→20:20)
[2017-04-04] MEDS: PANTOPRAZOLE SODIUM 40 MG VIAL IV PUSH SCH (08:58)
[2017-04-04] MEDS: BACITRACIN TOP OINT 15 GM TUBE TOPICAL SCH ×2 (08:58→20:21)
[2017-04-04] MEDS: DOCUSATE SODIUM 50 MG/SENNA 8.6 MG TAB PO SCH ×2 (08:58→21:20)
[2017-04-04] MEDS: SODIUM CHLORIDE 0.9% FLUSH 10 ML FLUSH IV FLUSH SCH ×2 (08:58→20:22)
[2017-04-04] MEDS: LACTULOSE SYRUP 20 GM/30 ML CUP PO SCH (08:58)
[2017-04-04] MEDS: MULTIVITAMIN INJ 10 ML, THIAMINE INJ 100 MG, FOLIC ACID INJ 1 MG in SODIUM CHLORID 0.9%... IV SCH (10:00)
[2017-04-04] MEDS: LACTATED RINGER'S 1000 ML INJ 1,000 ML IV SCH ×2 (10:17→20:17)
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
[2017-04-04] MEDS ORDERED: ACETAMINOPHEN/HYDROcodone 325 MG/10 MG TAB PO PRN (10:30)
[2017-04-04 10:55] LABS: CKMB 1.8 NG/ML (0.5-3.6)
[2017-04-04] MEDS ORDERED: CALCTAB19 PO (11:02)
[2017-04-04] MEDS ORDERED: HYDR-3583 PO (11:02)
[2017-04-04] MEDS ORDERED: XARE10TA PO (11:02)
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
[2017-04-04] MEDS ORDERED: PHENYLEPH/NS 1000 MCG/10 ML SYR IV ONE (12:00)
[2017-04-04] MEDS ORDERED: NORMOSOL R INJ 1,000 ML IV ONE (12:00)
[2017-04-04] MEDS ORDERED: LACTATED RINGER'S 1000 ML INJ 1,000 ML IV ONE (12:00)
[2017-04-04] MEDS ORDERED: ROCURONIUM INJ 50 MG/5 ML SYRINGE IV PUSH ONE (12:00)
[2017-04-04] MEDS: ceFAZolin 2 GM PREMIX 50 ML IV SCH ×2 (13:46→20:20)
[2017-04-04] MEDS: LIDOCAINE HCL 5% PATCH T-DERMAL SCH (16:03)
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
--- NOTE | 2017-04-04 19:40 | EKG ---
Date Performed: 04/03/2017 Time Performed: 13:19:57 PTAGE: 46 years EKG: SINUS TACHYCARDIA NONSPECIFIC T-WAVE ABNORMALITY ABNORMAL RHYTHM ECG WARNING: DATA QUALITY MAY AFFECT INTERPRETATION NO PREVIOUS TRACING DOCTOR: Jim Nevarez Interpretating Date/Time 04/04/2017 19:35:53
[2017-04-04] MEDS: ENOXAPARIN SODIUM 30 MG/0.3 ML SYRINGE SQ SCH (20:21)
[2017-04-04] MEDS: METHOCARBAMOL 500 MG TAB PO SCH (21:20)
[2017-04-04] MEDS: VANCOMYCIN INJ 1,000 MG in SODIUM CHLOR 0.9% 250 ML INJ 250 ML IV SCH (21:21)
--- NOTE | 2017-04-04 21:57 | RADRPT ---
EXAM DATE/TIME: 04/04/2017 10:09 [facility] COMPARISON: CT ABDOMEN & PELVIS W CONTRAST, April 01, 2017, 8:30. INDICATIONS : Left ilium fracture repair. OR. MEDICAL HISTORY : None. SURGICAL HISTORY : None. ENCOUNTER: Initial ACUITY: 1 day PAIN SCORE: Non-responsive. LOCATION: Left pelvis FINDINGS: 4 screws are seen through the left iliac bone. The more superior screws extend through the iliac bernardo ts appear thinner. Thicker screws extend through the inferior aspect of the ileum. The screws do not traverse the sacroiliac joint. The left hip joint appears aligned. CONCLUSION: Successful placement of surgical hardware/screws through the left iliac bone. Jose Bejarano MD on April 04, 2017 at 21:53 Board Certified Radiologist. This report was verified electronically.
[2017-04-05] VITALS (14 sets, daily range): BP systolic 91–114; BP diastolic 50–61; PULSE 93–111; RESP 14–22; TEMP 99.3–100.4; O2SAT 95–100
[2017-04-05] MEDS: SODIUM CHLOR 0.9% 1000 ML INJ 1,000 ML IV SCH ×2 (00:28→09:53)
[2017-04-05] MEDS: RESP: ALBUTEROL 2.5 MG/IPRATROPIUM 0.5 MG NEB (SCH) NEB ×5 (00:48→17:20)
[2017-04-05] MEDS: fentaNYL 2,500 MCG/NS 250 ML IV PRN ×2 (00:57→11:25)
[2017-04-05] MEDS: PIPERACIL-TAZO 3.375 GM PREMIX 50 ML IV SCH (01:08)
[2017-04-05] MEDS: ceFAZolin 2 GM PREMIX 50 ML IV SCH ×3 (03:54→20:41)
[2017-04-05 04:25] LABS: BLOOD GAS BASE EXCESS 2.9 mmol/L (-2-2); BLOOD GAS CARBOXYHEMOGLOBIN 1.5 % (0-4); BLOOD GAS HCO3 27 mmol/L (22-26); BLOOD GAS METHEMOGLOBIN 0.6 % (0-2); BLOOD GAS O2 HGB SATURATION 96 % (90-100); BLOOD GAS OXYGEN CONTENT 12.7 Vol % (12.0-20.0); BLOOD GAS PCO2 44 mmHg (38-42); BLOOD GAS PO2 91 mmHg (61-120); BLOOD GAS TOTAL HGB 9.4 G/DL (12.0-16.0); CRITICAL VALUE NO; OXYGEN DEVICE VENTILATOR; TEMP CORR TO 98.6
[2017-04-05 04:26] LABS: DRAW SITE RT RADIAL; FIO2 40 %; NUMBER OF ARTERIAL PUNCTURES 1; STAT NO; ULNAR PULSE PRESENT; VENT SETTINGS PRVC
--- NOTE | 2017-04-05 05:17 | RADRPT ---
EXAM DATE/TIME: 04/05/2017 03:41 [facility] COMPARISON: CHEST SINGLE AP, April 04, 2017, 5:12. INDICATIONS : Short of breath. MEDICAL HISTORY : None. SURGICAL HISTORY : None. ENCOUNTER: Subsequent ACUITY: 4 - 6 days PAIN SCORE: 10/10 LOCATION: Bilateral chest FINDINGS: Bilateral chest tubes remain in place. There is patchy airspace consolidation of both lungs, mostly m id and lower lungs. No large effusion seen. Also no perceptible pneumothorax. Right chest wall emphys charles again noted. Endotracheal tube tip is at the level of the thoracic inlet. There is a nasogastric tube with tip in the stomach. CONCLUSION: 1. Bilateral chest tubes without perceptible pneumothorax. 2. Patchy bilateral airspace disease not significantly changed. Jose Redding MD on April 05, 2017 at 5:14 Board Certified Radiologist. This report was verified electronically.
[2017-04-05] MEDS: METHOCARBAMOL 500 MG TAB PO SCH ×3 (05:32→20:41)
[2017-04-05] MEDS: LACTATED RINGER'S 1000 ML INJ 1,000 ML IV SCH (05:32)
[2017-04-05 06:06] LABS: AUTOMATED NEUTROPHIL # 3.4 TH/MM3 (1.8-7.7); BASOPHIL % 0.5 % (0.0-2.0); EOSINOPHIL # 0.1 TH/MM3 (0-0.4); EOSINOPHIL % 1.3 % (0.0-4.0); HEMATOCRIT 23.4 % (39.0-51.0); HEMO FLAGS DIFF FINAL; LYMPH % 13.6 % (9.0-44.0); LYMPHOCYTE # 0.6 TH/MM3 (1.0-4.8); MEAN CELL VOLUME 96.3 FL (80.0-100.0); MEAN CORPUSCULAR HEMOGLOBIN 32.5 PG (27.0-34.0); MEAN CORPUSCULAR HGB CONC 33.8 % (32.0-36.0); NEUT % 76.6 % (16.0-70.0); PLATELET COUNT 154 TH/MM3 (150-450); RED BLOOD COUNT 2.43 MIL/MM3 (4.50-5.90); RED CELL DISTRIBUTION WIDTH 13.3 % (11.6-17.2); WHITE BLOOD COUNT 4.5 TH/MM3 (4.0-11.0)
[2017-04-05 07:15] LABS: BICARBONATE 30.4 MEQ/L (21.0-32.0); CALCIUM-PROTEIN CORRECTED 8.3 MG/DL (8.5-10.1); MAGNESIUM 2.9 MG/DL (1.5-2.5); POTASSIUM 3.5 MEQ/L (3.5-5.1); TOTAL BILIRUBIN ADULT 0.7 MG/DL (0.2-1.0)
[2017-04-05] MEDS: PROPOFOL 1000 MG/100 ML INJ 100 ML IV PRN (07:20)
--- NOTE | 2017-04-05 07:20 | PD.ORT.PN ---
Subjective Subjective Remarks POD 1 s/p ORIF left ilium and acetabulum intubated/sedated Objective Vitals Vital Signs Date Time Temp Pulse Resp B/P (MAP) Pulse Ox O2 Delivery O2 Flow Rate FiO2 04/05/17 06:00 97 04/05/17 05:19 100 40 04/05/17 04:00 99.3 108 20 106/61 (76) 100 04/05/17 04:00 108 04/05/17 04:00 40 04/05/17 02:00 98 04/05/17 00:49 100 40 04/05/17 00:00 40 04/05/17 00:00 100.0 93 20 91/50 (64) 100 04/05/17 00:00 93 04/04/17 22:20 100 40 04/04/17 22:00 100 04/04/17 20:00 100.4 106 20 98/53 (68) 99 04/04/17 20:00 40 04/04/17 20:00 106 04/04/17 19:00 99 Mechanical Ventilator 40 04/04/17 18:00 107 04/04/17 16:00 108 04/04/17 16:00 40 04/04/17 16:00 100.5 108 20 100/51 (67) 98 04/04/17 15:36 94 40 04/04/17 14:00 102 04/04/17 12:00 99.1 100 20 97/52 (67) 95 04/04/17 12:00 40 04/04/17 12:00 99 04/04/17 11:00 101 04/04/17 10:40 96 40 04/04/17 08:35 100 100 04/04/17 08:24 96 40 04/04/17 08:00 40 04/04/17 08:00 103 04/04/17 08:00 101.5 104 20 96/53 (67) 95 I/O 04/04/17 04/04/17 04/04/17 04/05/17 04/05/17 04/05/17 07:00 15:00 23:00 07:00 15:00 23:00 Intake Total 399.4 ml 1709.6 ml 350 ml 2195 ml Output Total 470 ml 200 ml 450 ml 820 ml Balance -70.6 ml 1509.6 ml -100 ml 1375 ml Intake IV Total 399.4 ml 509.6 ml 350 ml 2195 ml Other 1200 ml Output Urine Total 400 ml 200 ml 400 ml 800 ml Gastric Drainage Total 0 ml 0 ml Chest Tube Drainage Total 70 ml 50 ml 20 ml # Bowel Movements 0 0 0 Result Diagram: 04/05/17 0421 04/04/17 0502 Imaging Last 24 hours Impressions Chest X-Ray 04/02/17 0600 Signed Impressions: Service Date/Time: Tuesday, April 02, 2017 03:59 - CONCLUSION: 1. Bilateral chest tubes without significant pneumothorax. Multiple right rib fractures. Minimal airspace disease in the lungs. No significant change since April 01. Raheel West MD Objective Remarks LLE: dressings clean and dry. intact. +cap refill distally Assessment & Plan Problem List: (1) Fracture of spinous process of thoracic vertebra ICD Codes: S22.008A - Other fracture of unspecified thoracic vertebra, initial encounter for closed fracture Status: Acute Qualifiers: Qualified Codes: S22.008A - Other fracture of unspecified thoracic vertebra , initial encounter for closed fracture (2) Ribs, multiple fractures ICD Codes: S22.49XA - Multiple fractures of ribs, unspecified side, initial encounter for closed fracture Status: Acute Qualifiers: Qualified Codes: S22.43XA - Multiple fractures of ribs, bilateral, initial encounter for closed fracture (3) Bilateral pneumothoraces ICD Codes: J93.9 - Pneumothorax, unspecified Status: Acute (4) Nasal bone fracture ICD Codes: S02.2XXA - Fracture of nasal bones, initial encounter for closed fracture Status: Acute Qualifiers: Qualified Codes: S02.2XXA - Fracture of nasal bones, initial encounter for closed fracture (5) Forehead laceration ICD Codes: S01.81XA - Laceration without foreign body of other part of head, initial encounter Status: Acute Qualifiers: Qualified Codes: S01.81XA - Laceration without foreign body of other part of head, initial encounter (6) Fracture of iliac wing ICD Codes: S32.309A - Unspecified fracture of unspecified ilium, initial encounter for closed fracture Status: Acute Qualifiers: Qualified Codes: S32.302A - Unspecified fracture of left ilium, initial encounter for closed fracture (7) Polysubstance dependence in controlled environment ICD Codes: F19.20 - Other psychoactive substance dependence, uncomplicated (8) Left acetabular fracture ICD Codes: S32.402A - Unspecified fracture of left acetabulum, initial encounter for closed fracture (9) Fracture of left superior pubic ramus ICD Codes: S32.512A - Fracture of superior rim of left pubis, initial encounter for closed fracture (10) Fracture of left inferior pubic ramus ICD Codes: S32.592A - Other specified fracture of left pubis, initial encounter for closed fracture Assessment and Plan 1) Left Acetabulum Fx with Ilium involvement s/p ORIF - POD1 -NWB -daily dressing changes POD 2 -CM for rehab placement vs home -medical management -DVT prophylaxis Kevin Kaye Apr 05, 2017 07:20
[2017-04-05] MEDS: MAGNESIUM HYDROXIDE SUSP 30 ML CUP PO SCH ×2 (08:45→20:15)
[2017-04-05] MEDS: BACITRACIN TOP OINT 15 GM TUBE TOPICAL SCH ×2 (09:00→20:33)
[2017-04-05] MEDS: VANCOMYCIN INJ 1,000 MG in SODIUM CHLOR 0.9% 250 ML INJ 250 ML IV SCH (09:00)
[2017-04-05] MEDS: ENOXAPARIN SODIUM 30 MG/0.3 ML SYRINGE SQ SCH ×2 (09:00→20:40)
[2017-04-05] MEDS: DOCUSATE SODIUM 50 MG/SENNA 8.6 MG TAB PO SCH ×2 (09:00→20:16)
[2017-04-05] MEDS: LACTULOSE SYRUP 20 GM/30 ML CUP PO SCH (09:00)
[2017-04-05] MEDS: PANTOPRAZOLE SODIUM 40 MG VIAL IV PUSH SCH (09:00)
[2017-04-05] MEDS: REMOVE OLD PATCH T-DERMAL SCH (09:00)
[2017-04-05] MEDS: SODIUM CHLORIDE 0.9% FLUSH 10 ML FLUSH IV FLUSH SCH ×2 (09:00→20:40)
[2017-04-05] MEDS: LIDOCAINE HCL 5% PATCH T-DERMAL SCH (09:00)
[2017-04-05] MEDS: KETOROLAC TROMETHAMINE 30 MG/ML (IVP) VIAL IV PUSH SCH ×3 (11:25→23:14)
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
[2017-04-05] MEDS: fentaNYL 50 MCG/HR PATCH T-DERMAL SCH (16:16)
[2017-04-05] MEDS: MORPHINE SULFATE 4 MG/ML INJ IV PUSH PRN ×2 (17:09→20:42)
[2017-04-05] MEDS: RESP: ALBUTEROL 2.5 MG/IPRATROPIUM 0.5 MG NEB (PRN) NEB ×2 (20:16→23:58)
[2017-04-06] VITALS (12 sets, daily range): BP systolic 104–119; BP diastolic 60–67; PULSE 89–107; RESP 16–24; TEMP 98.1–99.9; O2SAT 92–100
[2017-04-06] MEDS: MORPHINE SULFATE 4 MG/ML INJ IV PUSH PRN ×3 (00:41→15:06)
[2017-04-06] MEDS: ceFAZolin 2 GM PREMIX 50 ML IV SCH (04:14)
[2017-04-06 04:19] LABS: AUTOMATED NEUTROPHIL # 4.1 TH/MM3 (1.8-7.7); BASOPHIL % 0.4 % (0.0-2.0); EOSINOPHIL # 0.2 TH/MM3 (0-0.4); EOSINOPHIL % 3.7 % (0.0-4.0); LYMPH % 10.8 % (9.0-44.0); LYMPHOCYTE # 0.6 TH/MM3 (1.0-4.8); MEAN CELL VOLUME 94.4 FL (80.0-100.0); MEAN CORPUSCULAR HEMOGLOBIN 32.4 PG (27.0-34.0); MEAN CORPUSCULAR HGB CONC 34.3 % (32.0-36.0); MONO % 11.4 % (0.0-8.0); NEUT % 73.7 % (16.0-70.0); PLATELET COUNT 165 TH/MM3 (150-450); RED BLOOD COUNT 2.19 MIL/MM3 (4.50-5.90); RED CELL DISTRIBUTION WIDTH 13.2 % (11.6-17.2); WHITE BLOOD COUNT 5.5 TH/MM3 (4.0-11.0)
[2017-04-06 04:47] LABS: BICARBONATE 29.5 MEQ/L (21.0-32.0); CALCIUM-PROTEIN CORRECTED 8.2 MG/DL (8.5-10.1); MAGNESIUM 2.7 MG/DL (1.5-2.5); TOTAL BILIRUBIN ADULT 0.7 MG/DL (0.2-1.0)
[2017-04-06 05:02] LABS: HEMO FLAGS DIFF FINAL
[2017-04-06 05:04] LABS: HEMATOCRIT 20.6 % (39.0-51.0)
[2017-04-06] MEDS: METHOCARBAMOL 500 MG TAB PO SCH ×3 (05:26→22:00)
--- NOTE | 2017-04-06 05:34 | RADRPT ---
EXAM DATE/TIME: 04/06/2017 03:53 [facility] COMPARISON: CHEST SINGLE AP, April 05, 2017, 3:41. INDICATIONS : Shortness of breath. MEDICAL HISTORY : None. SURGICAL HISTORY : None. ENCOUNTER: Subsequent ACUITY: 4 - 6 days PAIN SCORE: Non-responsive. LOCATION: Bilateral chest FINDINGS: Left greater than right mid and lower lung predominant airspace opacities with small effusions are co nsiderably worse relative to yesterday. Bilateral chest tubes remain in place. I don't see a pneumoth orax. Heart size stable the left within normal limits. Bilateral rib fractures are again seen. Patient has been extubated. Nasogastric tube also out. CONCLUSION: Worsening bilateral airspace disease. Endotracheal tube and nasogastric tube removed. Bilateral chest tubes remain in place. No pneumothorax. Jose Redding MD on April 06, 2017 at 5:31 Board Certified Radiologist. This report was verified electronically.
[2017-04-06 05:48] LABS: BLOOD GAS BASE EXCESS 3.9 mmol/L (-2-2); BLOOD GAS CARBOXYHEMOGLOBIN 1.9 % (0-4); BLOOD GAS HCO3 28 mmol/L (22-26); BLOOD GAS METHEMOGLOBIN 0.5 % (0-2); BLOOD GAS O2 HGB SATURATION 90 % (90-100); BLOOD GAS OXYGEN CONTENT 11.2 Vol % (12.0-20.0); BLOOD GAS PCO2 43 mmHg (38-42); BLOOD GAS PO2 61 mmHg (61-120); BLOOD GAS TOTAL HGB 8.7 G/DL (12.0-16.0); CRITICAL VALUE NO; DRAW SITE LT RADIAL; LITER FLOW 5 L/M; NUMBER OF ARTERIAL PUNCTURES 1; OXYGEN DEVICE NASAL CANNULA; STAT NO; TEMP CORR TO 98.6; ULNAR PULSE PRESENT
[2017-04-06] MEDS: POTASSIUM PHOSPHATE INJ 30 MMOL in SODIUM CHLOR 0.9% 250 ML INJ 250 ML IV PRN (06:01)
[2017-04-06] MEDS: KETOROLAC TROMETHAMINE 30 MG/ML (IVP) VIAL IV PUSH SCH ×4 (06:21→23:36)
--- NOTE | 2017-04-06 08:42 | PD.ORT.PN ---
Subjective Subjective Remarks Pain controlled. concern to left sternoclavicular joint Objective Vitals Vital Signs Date Time Temp Pulse Resp B/P (MAP) Pulse Ox O2 Delivery O2 Flow Rate FiO2 04/06/17 08:00 99.5 92 24 108/65 (79) 98 04/06/17 08:00 92 04/06/17 07:52 89 Non-Rebreather 15.00 100 04/06/17 06:00 94 04/06/17 04:00 99 04/06/17 04:00 99.3 99 16 111/67 (82) 94 04/06/17 02:00 100 04/06/17 00:00 107 04/06/17 00:00 99.9 107 20 113/63 (80) 98 04/05/17 22:00 111 04/05/17 20:18 97 Nasal Cannula 4.00 04/05/17 20:00 98 Nasal Cannula 5.00 04/05/17 20:00 99.9 98 20 99/57 (71) 98 04/05/17 20:00 98 04/05/17 18:22 16 04/05/17 18:22 16 04/05/17 17:16 16 04/05/17 17:16 16 04/05/17 16:00 103 04/05/17 16:00 99.7 103 14 114/60 (78) 96 04/05/17 13:55 97 Nasal Cannula 6.00 04/05/17 12:00 100.4 109 16 100/55 (70) 95 04/05/17 11:07 96 40 04/05/17 10:30 40 I/O 04/05/17 04/05/17 04/05/17 04/06/17 04/06/17 04/06/17 07:00 15:00 23:00 07:00 15:00 23:00 Intake Total 2195 ml 2087 ml 1060 ml Output Total 820 ml 660 ml 670 ml Balance 1375 ml 1427 ml 390 ml Intake Oral 960 ml 960 ml IV Total 2195 ml 1080 ml 100 ml Tube Feeding 47 ml Output Urine Total 800 ml 650 ml 600 ml Chest Tube Drainage Total 20 ml 10 ml 70 ml # Bowel Movements 0 1 2 Result Diagram: 04/06/1740204/06/17402 Imaging Last 24 hours Impressions Chest X-Ray 04/02/17 0600 Signed Impressions: Service Date/Time: Tuesday, April 02, 2017 03:59 - CONCLUSION: 1. Bilateral chest tubes without significant pneumothorax. Multiple right rib fractures. Minimal airspace disease in the lungs. No significant change since April 01. Raheel West MD Objective Remarks Left chest wall reveals chest tube in place. No tenderness to palpation over clavicle shaft or distally. He does have tenderness over sternoclavicular joint with slight swelling and displacement Pelvis :dressings clean and dry. intact. +cap refill distally B LE Assessment & Plan Problem List: (1) Fracture of spinous process of thoracic vertebra ICD Codes: S22.008A - Other fracture of unspecified thoracic vertebra, initial encounter for closed fracture Status: Acute Qualifiers: Qualified Codes: S22.008A - Other fracture of unspecified thoracic vertebra , initial encounter for closed fracture (2) Ribs, multiple fractures ICD Codes: S22.49XA - Multiple fractures of ribs, unspecified side, initial encounter for closed fracture Status: Acute Qualifiers: Qualified Codes: S22.43XA - Multiple fractures of ribs, bilateral, initial encounter for closed fracture (3) Bilateral pneumothoraces ICD Codes: J93.9 - Pneumothorax, unspecified Status: Acute (4) Nasal bone fracture ICD Codes: S02.2XXA - Fracture of nasal bones, initial encounter for closed fracture Status: Acute Qualifiers: Qualified Codes: S02.2XXA - Fracture of nasal bones, initial encounter for closed fracture (5) Forehead laceration ICD Codes: S01.81XA - Laceration without foreign body of other part of head, initial encounter Status: Acute Qualifiers: Qualified Codes: S01.81XA - Laceration without foreign body of other part of head, initial encounter (6) Fracture of iliac wing ICD Codes: S32.309A - Unspecified fracture of unspecified ilium, initial encounter for closed fracture Status: Acute Qualifiers: Qualified Codes: S32.302A - Unspecified fracture of left ilium, initial encounter for closed fracture (7) Polysubstance dependence in controlled environment ICD Codes: F19.20 - Other psychoactive substance dependence, uncomplicated (8) Left acetabular fracture ICD Codes: S32.402A - Unspecified fracture of left acetabulum, initial encounter for closed fracture (9) Fracture of left superior pubic ramus ICD Codes: S32.512A - Fracture of superior rim of left pubis, initial encounter for closed fracture (10) Fracture of left inferior pubic ramus ICD Codes: S32.592A - Other specified fracture of left pubis, initial encounter for closed fracture Assessment and Plan 1) Left Acetabulum Fx with Ilium involvement s/p ORIF - POD2 -NWB -daily dressing changes 2 sprain to left sternoclavicular joint nonoperative treatment -CM for rehab placement vs home -medical management -DVT prophylaxis Manny Jean Jr. Apr 06, 2017 08:42
[2017-04-06] MEDS: MAGNESIUM HYDROXIDE SUSP 30 ML CUP PO SCH ×2 (08:45→19:10)
[2017-04-06] MEDS: ENOXAPARIN SODIUM 30 MG/0.3 ML SYRINGE SQ SCH ×2 (08:53→20:17)
[2017-04-06] MEDS: LIDOCAINE HCL 5% PATCH T-DERMAL SCH (08:53)
[2017-04-06] MEDS: BACITRACIN TOP OINT 15 GM TUBE TOPICAL SCH ×2 (08:53→20:18)
[2017-04-06] MEDS: FAMOTIDINE 20 MG TAB PO SCH ×2 (08:53→20:17)
[2017-04-06] MEDS: DOCUSATE SODIUM 50 MG/SENNA 8.6 MG TAB PO SCH ×2 (08:53→19:11)
[2017-04-06] MEDS: LACTULOSE SYRUP 20 GM/30 ML CUP PO SCH (08:54)
[2017-04-06] MEDS: SODIUM CHLORIDE 0.9% FLUSH 10 ML FLUSH IV FLUSH SCH ×2 (08:54→20:18)
[2017-04-06] MEDS: REMOVE OLD PATCH T-DERMAL SCH (09:00)
[2017-04-06] MEDS ORDERED: SODIUM CHLOR 0.9% 250 ML INJ 250 ML IV ONE (09:30)
[2017-04-06] MEDS: POTASSIUM CHLORIDE 25 MEQ EFFERVESCENT TAB PO PRN (12:55)
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
[2017-04-06 17:03] LABS: BLOOD GAS CARBOXYHEMOGLOBIN 1.5 % (0-4); BLOOD GAS HCO3 30 mmol/L (22-26); BLOOD GAS METHEMOGLOBIN 0.8 % (0-2); BLOOD GAS O2 HGB SATURATION 94 % (90-100); BLOOD GAS OXYGEN CONTENT 24.9 Vol % (12.0-20.0); BLOOD GAS PCO2 46 mmHg (38-42); BLOOD GAS PO2 79 mmHg (61-120); BLOOD GAS TOTAL HGB 18.9 G/DL (12.0-16.0); CRITICAL VALUE NO; DRAW SITE LT RADIAL; LITER FLOW 15 L/M; NUMBER OF ARTERIAL PUNCTURES 1; OXYGEN DEVICE PRB; STAT NO; TEMP CORR TO 98.6; ULNAR PULSE PRESENT
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
[2017-04-06] MEDS: ACETAMINOPHEN 325 MG TAB PO PRN (23:52)
[2017-04-06] MEDS: RESP: ALBUTEROL 2.5 MG/IPRATROPIUM 0.5 MG NEB (PRN) NEB (23:56)
[2017-04-07] VITALS (14 sets, daily range): BP systolic 108–134; BP diastolic 54–68; PULSE 84–108; RESP 20–28; TEMP 98.1–100.6; O2SAT 92–100
[2017-04-07] LABS: POTASSIUM 3.4 MEQ/L (3.5-5.1)
[2017-04-07] MEDS: MORPHINE SULFATE 4 MG/ML INJ IV PUSH PRN ×3 (00:01→08:37)
[2017-04-07] MEDS: POTASSIUM PHOSPHATE INJ 30 MMOL in SODIUM CHLOR 0.9% 250 ML INJ 250 ML IV PRN (00:59)
[2017-04-07] MEDS: CHLORHEXIDINE GLUCONATE 2 % 1 PACK (2 CLOTHS) TOP SCH ×2 (04:00→22:17)
[2017-04-07] MEDS: METHOCARBAMOL 500 MG TAB PO SCH ×3 (04:56→22:16)
[2017-04-07 05:30] LABS: BLOOD GAS BASE EXCESS 5.8 mmol/L (-2-2); BLOOD GAS CARBOXYHEMOGLOBIN 1.7 % (0-4); BLOOD GAS HCO3 30 mmol/L (22-26); BLOOD GAS METHEMOGLOBIN 0.7 % (0-2); BLOOD GAS O2 HGB SATURATION 91 % (90-100); BLOOD GAS PCO2 47 mmHg (38-42); BLOOD GAS PO2 65 mmHg (61-120); BLOOD GAS TOTAL HGB 10.1 G/DL (12.0-16.0); TEMP CORR TO 98.6
[2017-04-07 05:31] LABS: CRITICAL VALUE NO; DRAW SITE LT RADIAL; FIO2 70 %; LITER FLOW 15 L/M; NUMBER OF ARTERIAL PUNCTURES 1; OXYGEN DEVICE PRB; STAT NO; ULNAR PULSE PRESENT
[2017-04-07] MEDS: KETOROLAC TROMETHAMINE 30 MG/ML (IVP) VIAL IV PUSH SCH ×4 (06:09→22:17)
[2017-04-07 06:24] LABS: AUTOMATED NEUTROPHIL # 6.9 TH/MM3 (1.8-7.7); BASOPHIL # 0.1 TH/MM3 (0-0.2); BASOPHIL % 0.6 % (0.0-2.0); EOSINOPHIL # 0.3 TH/MM3 (0-0.4); EOSINOPHIL % 3.2 % (0.0-4.0); HEMATOCRIT 25.8 % (39.0-51.0); HEMO FLAGS DIFF FINAL; LYMPH % 7.6 % (9.0-44.0); LYMPHOCYTE # 0.7 TH/MM3 (1.0-4.8); MEAN CELL VOLUME 92.7 FL (80.0-100.0); MEAN CORPUSCULAR HEMOGLOBIN 31.6 PG (27.0-34.0); MEAN CORPUSCULAR HGB CONC 34.1 % (32.0-36.0); MONO % 8.8 % (0.0-8.0); NEUT % 79.8 % (16.0-70.0); PLATELET COUNT 238 TH/MM3 (150-450); RED BLOOD COUNT 2.78 MIL/MM3 (4.50-5.90); RED CELL DISTRIBUTION WIDTH 13.2 % (11.6-17.2); WHITE BLOOD COUNT 8.6 TH/MM3 (4.0-11.0)
--- NOTE | 2017-04-07 06:42 | RADRPT ---
EXAM DATE/TIME: 04/07/2017 05:35 [facility] COMPARISON: CHEST SINGLE AP, February 17, 2017, 20:28. INDICATIONS : Chest pain post trauma MEDICAL HISTORY : Congestive heart failure. Chronic obstructive pulmonary disease SURGICAL HISTORY : None. ENCOUNTER: Initial ACUITY: 1 day PAIN SCORE: 10/10 LOCATION: Bilateral chest FINDINGS: Extensive bilateral air space opacities are present, perihilar predominant. Bilateral chest tubes are present. A questionable small right apical pneumothorax. Right rib fractures are noted. I don't ivy rly see a rib fracture on the left. Heart size stable, within normal limits. CONCLUSION: 1. Severe bilateral airspace disease, new. 2. Bilateral chest tubes and a questionable small right apical pneumothorax. No pneumothorax seen on the left. 3. Multiple mid to lower right rib fractures are seen. Jose Redding MD on April 07, 2017 at 6:37 Board Certified Radiologist. This report was verified electronically.
[2017-04-07 06:49] LABS: BICARBONATE 29.2 MEQ/L (21.0-32.0); CALCIUM-PROTEIN CORRECTED 8.4 MG/DL (8.5-10.1); MAGNESIUM 2.5 MG/DL (1.5-2.5); POTASSIUM 3.5 MEQ/L (3.5-5.1); TOTAL BILIRUBIN ADULT 0.9 MG/DL (0.2-1.0)
--- NOTE | 2017-04-07 07:10 | PD.ORT.PN ---
Subjective Subjective Remarks POD 3 s/p ORIF left ilium and acetabulum extubated. resting comfortably Objective Vitals Vital Signs Date Time Temp Pulse Resp B/P (MAP) Pulse Ox O2 Delivery O2 Flow Rate FiO2 04/07/17 06:00 104 04/07/17 05:05 25 04/07/17 04:24 20 04/07/17 04:00 84 04/07/17 04:00 98.2 84 23 111/62 (78) 100 04/07/17 02:00 85 04/07/17 00:00 108 04/07/17 00:00 100.6 108 28 134/60 (84) 95 04/06/17 22:00 102 04/06/17 20:00 103 04/06/17 20:00 92 Partial Non-Rebreather 04/06/17 20:00 98.1 103 22 114/65 (81) 92 04/06/17 16:00 99.7 104 24 119/66 (83) 96 04/06/17 16:00 104 04/06/17 15:00 100 Partial Non-Rebreather 04/06/17 13:21 24 04/06/17 12:25 99.3 93 20 104/60 96 04/06/17 12:00 89 04/06/17 12:00 99.7 89 20 104/60 (75) 100 04/06/17 11:03 99.5 95 22 118/63 100 04/06/17 09:00 96 Non-Rebreather 15.00 04/06/17 08:00 99.5 92 24 108/65 (79) 98 04/06/17 08:00 92 04/06/17 07:52 89 Non-Rebreather 15.00 100 I/O 04/06/17 04/06/17 04/06/17 04/07/17 04/07/17 04/07/17 07:00 15:00 23:00 07:00 15:00 23:00 Intake Total 1060 ml 400 ml 1690 ml 200 ml Output Total 670 ml 998 ml 860 ml Balance 390 ml 400 ml 692 ml -660 ml Intake Oral 960 ml 1200 ml 200 ml IV Total 100 ml 490 ml Packed Cells 400 ml Output Urine Total 600 ml 750 ml 750 ml Chest Tube Drainage Total 70 ml 248 ml 110 ml # Bowel Movements 2 1 0 Result Diagram: 04/07/17 0455 04/07/17 0455 Imaging Last 24 hours Impressions Chest X-Ray 04/02/17 0600 Signed Impressions: Service Date/Time: Sunday, April 02, 2017 03:59 - CONCLUSION: 1. Bilateral chest tubes without significant pneumothorax. Multiple right rib fractures. Minimal airspace disease in the lungs. No significant change since April 01. Raheel West MD Objective Remarks Pelvis :dressings clean and dry. intact. +cap refill distally B LE Assessment & Plan Problem List: (1) Fracture of spinous process of thoracic vertebra ICD Codes: S22.008A - Other fracture of unspecified thoracic vertebra, initial encounter for closed fracture Status: Acute Qualifiers: (2) Ribs, multiple fractures ICD Codes: S22.49XA - Multiple fractures of ribs, unspecified side, initial encounter for closed fracture Status: Acute Qualifiers: (3) Bilateral pneumothoraces ICD Codes: J93.9 - Pneumothorax, unspecified Status: Acute (4) Nasal bone fracture ICD Codes: S02.2XXA - Fracture of nasal bones, initial encounter for closed fracture Status: Acute Qualifiers: (5) Forehead laceration ICD Codes: S01.81XA - Laceration without foreign body of other part of head, initial encounter Status: Acute Qualifiers: (6) Fracture of iliac wing ICD Codes: S32.309A - Unspecified fracture of unspecified ilium, initial encounter for closed fracture Status: Acute Qualifiers: (7) Polysubstance dependence in controlled environment ICD Codes: F19.20 - Other psychoactive substance dependence, uncomplicated (8) Left acetabular fracture ICD Codes: S32.402A - Unspecified fracture of left acetabulum, initial encounter for closed fracture (9) Fracture of left superior pubic ramus ICD Codes: S32.512A - Fracture of superior rim of left pubis, initial encounter for closed fracture (10) Fracture of left inferior pubic ramus ICD Codes: S32.592A - Other specified fracture of left pubis, initial encounter for closed fracture Assessment and Plan 1) Left Acetabulum Fx with Ilium involvement s/p ORIF - POD3 -NWB -daily dressing changes 2 sprain to left sternoclavicular joint nonoperative treatment -CM for rehab placement vs home -medical management -DVT prophylaxis Kevin Kaye Apr 07, 2017 07:10
[2017-04-07] MEDS: LACTULOSE SYRUP 20 GM/30 ML CUP PO SCH (08:22)
[2017-04-07] MEDS: LIDOCAINE HCL 5% PATCH T-DERMAL SCH (08:22)
[2017-04-07] MEDS: REMOVE OLD PATCH T-DERMAL SCH (08:22)
[2017-04-07] MEDS: ENOXAPARIN SODIUM 30 MG/0.3 ML SYRINGE SQ SCH ×2 (08:22→19:54)
[2017-04-07] MEDS: SODIUM CHLORIDE 0.9% FLUSH 10 ML FLUSH IV FLUSH SCH ×2 (08:22→20:49)
[2017-04-07] MEDS: FAMOTIDINE 20 MG TAB PO SCH ×2 (08:22→19:54)
[2017-04-07] MEDS: MAGNESIUM HYDROXIDE SUSP 30 ML CUP PO SCH ×2 (08:23→20:45)
[2017-04-07] MEDS: BACITRACIN TOP OINT 15 GM TUBE TOPICAL SCH ×2 (08:23→20:49)
[2017-04-07] MEDS: DOCUSATE SODIUM 50 MG/SENNA 8.6 MG TAB PO SCH ×2 (08:23→19:54)
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
[2017-04-07] MEDS: RESP: ALBUTEROL 2.5 MG/IPRATROPIUM 0.5 MG NEB (PRN) NEB (09:10)
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
[2017-04-07] MEDS: POTASSIUM CHLORIDE 25 MEQ EFFERVESCENT TAB PO PRN (15:35)
[2017-04-07] MEDS: HYDROmorphone HCL PF 1 MG/ML VIAL IV PUSH PRN ×3 (15:40→23:53)
[2017-04-08] VITALS (13 sets, daily range): BP systolic 104–121; BP diastolic 51–81; PULSE 71–110; RESP 18–31; TEMP 98.4–100.1; O2SAT 93–99
[2017-04-08] MEDS: HYDROmorphone HCL PF 1 MG/ML VIAL IV PUSH PRN ×5 (03:47→21:49)
[2017-04-08] MEDS: METHOCARBAMOL 500 MG TAB PO SCH ×3 (05:08→20:08)
[2017-04-08] MEDS: KETOROLAC TROMETHAMINE 30 MG/ML (IVP) VIAL IV PUSH SCH ×3 (05:08→17:33)
--- NOTE | 2017-04-08 06:13 | RADRPT ---
EXAM DATE/TIME: 04/08/2017 05:27 [facility] COMPARISON: CHEST SINGLE AP, April 07, 2017, 5:35. INDICATIONS : Contusions. MEDICAL HISTORY : Congestive heart failure. Chronic obstructive pulmonary disease SURGICAL HISTORY : None. ENCOUNTER: Subsequent ACUITY: 1 week PAIN SCORE: 8/10 LOCATION: Bilateral chest FINDINGS: A single portable frontal view the chest shows bilateral thoracostomy tubes. Small right apical pneum othorax is unchanged. No pneumothorax on the left. Diffuse pulmonary consolidations remain. Heart nor mal size. No effusions. CONCLUSION: 1. Unchanged small right apical pneumothorax. 2. Unchanged diffuse pulmonary infiltrates. Kobe Parks Jr., MD on April 08, 2017 at 6:10 Board Certified Radiologist. This report was verified electronically.
--- NOTE | 2017-04-08 07:35 | PD.ORT.PN ---
Subjective Subjective Remarks POD 4 s/p ORIF left ilium and acetabulum extubated. resting comfortably. states hip is doing well. no real pain. Objective Vitals Vital Signs Date Time Temp Pulse Resp B/P (MAP) Pulse Ox O2 Delivery O2 Flow Rate FiO2 04/08/17 06:00 100 04/08/17 04:31 93 70 04/08/17 04:00 71 04/08/17 04:00 100.1 82 18 121/81 (94) 99 04/08/17 02:00 74 04/08/17 01:18 96 70 04/08/17 00:00 74 04/08/17 00:00 98.9 74 18 115/60 (78) 99 04/07/17 22:00 92 04/07/17 20:14 92 70 04/07/17 20:00 88 04/07/17 20:00 100.3 88 21 110/54 (72) 95 04/07/17 19:00 100 Bi-Pap 70 04/07/17 18:32 25 04/07/17 17:43 94 70 04/07/17 16:40 25 04/07/17 16:10 25 04/07/17 16:00 98.1 97 25 110/68 (82) 99 04/07/17 16:00 97 04/07/17 13:51 100 70 04/07/17 12:00 99 04/07/17 12:00 100.0 99 24 121/65 (83) 99 04/07/17 10:40 100 Bi-Pap 80 04/07/17 10:40 95 80 04/07/17 09:00 92 Partial Rebreather 15.00 04/07/17 08:00 100.4 93 20 108/60 (76) 98 04/07/17 08:00 98 Partial Non-Rebreather 15.00 04/07/17 08:00 93 I/O 04/07/17 04/07/17 04/07/17 04/08/17 04/08/17 04/08/17 07:00 15:00 23:00 07:00 15:00 23:00 Intake Total 200 ml 1080 ml 500 ml Output Total 860 ml 1100 ml 625 ml Balance -660 ml -20 ml -125 ml Intake Oral 200 ml 1080 ml 500 ml Output Urine Total 750 ml 750 ml 575 ml Chest Tube Drainage Total 110 ml 350 ml 50 ml # Bowel Movements 0 0 Result Diagram: 04/07/175 04/07/175 Imaging Last 24 hours Impressions Chest X-Ray 04/02/17 0600 Signed Impressions: Service Date/Time: Tuesday, April 02, 2017 03:59 - CONCLUSION: 1. Bilateral chest tubes without significant pneumothorax. Multiple right rib fractures. Minimal airspace disease in the lungs. No significant change since April 01. Raheel West MD Objective Remarks Pelvis :dressings clean and dry. intact. +cap refill distally B LE Assessment & Plan Problem List: (1) Fracture of spinous process of thoracic vertebra ICD Codes: S22.008A - Other fracture of unspecified thoracic vertebra, initial encounter for closed fracture Status: Acute Qualifiers: (2) Ribs, multiple fractures ICD Codes: S22.49XA - Multiple fractures of ribs, unspecified side, initial encounter for closed fracture Status: Acute Qualifiers: (3) Bilateral pneumothoraces ICD Codes: J93.9 - Pneumothorax, unspecified Status: Acute (4) Nasal bone fracture ICD Codes: S02.2XXA - Fracture of nasal bones, initial encounter for closed fracture Status: Acute Qualifiers: (5) Forehead laceration ICD Codes: S01.81XA - Laceration without foreign body of other part of head, initial encounter Status: Acute Qualifiers: (6) Fracture of iliac wing ICD Codes: S32.309A - Unspecified fracture of unspecified ilium, initial encounter for closed fracture Status: Acute Qualifiers: (7) Polysubstance dependence in controlled environment ICD Codes: F19.20 - Other psychoactive substance dependence, uncomplicated (8) Left acetabular fracture ICD Codes: S32.402A - Unspecified fracture of left acetabulum, initial encounter for closed fracture (9) Fracture of left superior pubic ramus ICD Codes: S32.512A - Fracture of superior rim of left pubis, initial encounter for closed fracture (10) Fracture of left inferior pubic ramus ICD Codes: S32.592A - Other specified fracture of left pubis, initial encounter for closed fracture Assessment and Plan 1) Left Acetabulum Fx with Ilium involvement s/p ORIF - POD 4 -NWB -daily dressing changes 2 sprain to left sternoclavicular joint nonoperative treatment -CM for rehab placement vs home -medical management -DVT prophylaxis Kevin Kaye Apr 08, 2017 07:35
--- NOTE | 2017-04-08 08:23 | HHI.PR ---
Neuropsych Emotional Emotional: Intact: Emotional, Anxious/Fearful, Depressed/Sad, Hostile/Resentful , Irritable/Angry/Frustrate, Labile, Constricted/Blunted Behavior Behavior: Intact: Behavior, Coping/Acceptance, Cooperative w/ Treatment, Motivation, Frustration Tolerance/[place], Impulsive/Agitated, Suicidal/Homicidal Risk Cognitive Cognitive: Intact: Cognitive, Attention/Concentration, Confused/Orientation, Insight/Awareness, Judgement/Problem-Solving, Memory Psychosocial Psychosocial: Severe: Psychosocial, Family/Other Adjustment, Realistic Expectation, Unable to Asses: Self-Esteem/Confidence Progress Notes/Response to Tx Contents of Sessions: Adjustment Time with Patient: 15 minutes Premorbid psychological status Premorbid Cognitive, Emotional and Behavioral Status: Unable to Assess. The patient's educational and occupational histories are not able to be determined. Substance abuse history is documented. Behavioral Reactions of Patient and Family/Support System: Unable to Assess. The patients family is experiencing ongoing issues of adjustment given the nature of the injury, and this aspect of recovery will require ongoing monitoring. Emotional/Behavioral Status of Patient and Family/Support System: Unable to Assess. Pertinent issues, if appropriate to this patients clinical care, are described in detail above. Maximizing acute care outcome It is recommended that the patient be monitored for emergent behavioral impulsivity as the medical condition evolves. This patients polysubstance dependence challenges may limit their rehabilitation potential going forward, and these challenges will require specialized therapeutic skills to maximize outcome. Anticipated Problems Ongoing areas of concern will include behavioral impulsivity, lack of insight and judgment, which may or many not improve with time and treatment. Treatment Plan This clinician will continue to follow with you throughout the course of this patients acute care treatment, and I will be available to meet with the patient s family/support system to facilitate their understanding and the ongoing care of their family member. The goals of neuropsychological intervention shall be both educational and supportive to the family/support system as is deemed clinically appropriate. Impression 36 year old male s/p multi trauma with history of polysubstance dependence. Diagnosis: (1) Polysubstance dependence in controlled environment Progress Note Narrative Ongoing follow-up of patient seen during daily trauma rounds. This is day 7 post injury. The patient is compliant with all medical directives, and is motivated to improve. Trauma team consensus is he is demonstrating an ARDS pattern. No neurobehavioral issues. I will continue to follow. Ulysses Bucio PhD Apr 08, 2017 8:23 am
[2017-04-08] MEDS: REMOVE OLD PATCH T-DERMAL SCH (08:26)
[2017-04-08] MEDS: LIDOCAINE HCL 5% PATCH T-DERMAL SCH (08:26)
[2017-04-08] MEDS: FAMOTIDINE 20 MG TAB PO SCH ×2 (08:27→20:08)
[2017-04-08] MEDS: DOCUSATE SODIUM 50 MG/SENNA 8.6 MG TAB PO SCH ×2 (08:27→20:08)
[2017-04-08] MEDS: LACTULOSE SYRUP 20 GM/30 ML CUP PO SCH (08:27)
[2017-04-08] MEDS: SODIUM CHLORIDE 0.9% FLUSH 10 ML FLUSH IV FLUSH SCH ×2 (08:27→20:08)
[2017-04-08] MEDS: ENOXAPARIN SODIUM 30 MG/0.3 ML SYRINGE SQ SCH ×2 (08:27→20:08)
[2017-04-08] MEDS: MAGNESIUM HYDROXIDE SUSP 30 ML CUP PO SCH ×2 (08:27→20:08)
[2017-04-08] MEDS: BACITRACIN TOP OINT 15 GM TUBE TOPICAL SCH ×2 (08:27→20:08)
[2017-04-08] MEDS: RESP: ALBUTEROL 2.5 MG/IPRATROPIUM 0.5 MG NEB (PRN) NEB (09:00)
[2017-04-08] MEDS ORDERED: PADIMATE (CHAPSTICK) 4.5 GM TUBE TOPICAL PRN (10:00)
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
[2017-04-08] MEDS: fentaNYL 50 MCG/HR PATCH T-DERMAL SCH (14:09)
[2017-04-08] MEDS ORDERED: REMOVE OLD DURAGESIC (FENTANYL) PATCH T-DERMAL SCH (15:00)
[2017-04-08] MEDS: CHLORHEXIDINE GLUCONATE 2 % 1 PACK (2 CLOTHS) TOP SCH (20:08)
[2017-04-09] VITALS (18 sets, daily range): BP systolic 89–123; BP diastolic 42–60; PULSE 80–106; RESP 18–30; TEMP 98.7–100.3; O2SAT 91–100
[2017-04-09] MEDS: KETOROLAC TROMETHAMINE 30 MG/ML (IVP) VIAL IV PUSH SCH ×2 (01:34→06:25)
[2017-04-09] MEDS ORDERED: ETOMIDATE 40 MG/20 ML VIAL ONE (02:27)
[2017-04-09] MEDS ORDERED: BUMETANIDE INJ 1 MG/4 ML VIAL IV PUSH ONE (02:30)
[2017-04-09] MEDS ORDERED: fentaNYL DRIP 250 ML IV PRN (02:30)
[2017-04-09] MEDS ORDERED: PROPOFOL 1000 MG/100 ML INJ 100 ML IV PRN (02:30)
[2017-04-09] MEDS ORDERED: NOREPINEPHRINE-DEXTROSE DRIP 250 ML IV ONE (02:43)
[2017-04-09] MEDS ORDERED: MIDAZOLAM HCL 5 MG/ML VIAL (1 ML) ONE (02:47)
[2017-04-09] MEDS ORDERED: MIDAZOLAM HCL 5 MG/ML VIAL (1 ML) IV ONE (03:00)
[2017-04-09] MEDS ORDERED: ETOMIDATE 40 MG/20 ML VIAL IV PUSH ONE (03:00)
--- NOTE | 2017-04-09 03:33 | RADRPT ---
EXAM DATE/TIME: 04/09/2017 02:50 [facility] COMPARISON: CHEST SINGLE AP, April 08, 2017, 5:27. INDICATIONS : Post intubation MEDICAL HISTORY : Chronic obstructive pulmonary disease. Congestive heart failure. SURGICAL HISTORY : None. ENCOUNTER: Subsequent ACUITY: 1 week PAIN SCORE: Non-responsive. LOCATION: Bilateral chest FINDINGS: A single portable frontal view of the chest is blurred slightly from breathing motion artifact. Bilat eral thoracostomy tubes without discernible pneumothorax. Diffuse and worsening bilateral intra-alveo lar pulmonary infiltrates. No effusions. Heart is normal in size. CONCLUSION: Worsening diffuse bilateral pulmonary infiltrates. Kobe Parks Jr., MD on April 09, 2017 at 3:30 Board Certified Radiologist. This report was verified electronically.
[2017-04-09] MEDS: PROPOFOL 1000 MG/100 ML INJ 100 ML IV PRN ×3 (03:41→18:32)
[2017-04-09] MEDS: fentaNYL DRIP 250 ML IV PRN ×2 (03:46→13:55)
--- NOTE | 2017-04-09 03:50 | PD.PROCEDR ---
Central Line Procedure REASON FOR PROCEDURE Central venous access PROCEDURE PERFORMED Central line placement: Right subclavian CVP CONSENT Procedure was done emergently as patient was intubated for resp failure and started on Levophed post intubation. ANESTHESIA Local injection of 1% Lidocaine DESCRIPTION OF THE PROCEDURE The patient was placed in supine, mild Trendelenburg position. The area was exposed and cleansed with ChloraPrep, times two. Large sterile drape was used to cover the patient, with the site exposed, under sterile conditions including cap, face mask, sterile gown, and sterile gloves. On single attempt, the introducer needle was inserted with negative pressure in syringe and venous flash was obtained. The guide wire was then advanced without any restriction and the needle was removed. The dilator was used without any complications. Using Seldinger technique the catheter was advanced over the guide wire to a depth of 20 centimeters. The guide wire was removed. All ports were aspirated with dark venous blood return and flushed easily with sterile saline. All ports were capped. Antibiotic disc was placed around central line at puncture site. The central line was secured to the skin with two interrupted 2.0 silk sutures. The area was bandaged with sterile see-through central line bandage. RADIOLOGICAL DATA CXR ordered to verify line placement COMPLICATIONS: No apparent complications ESTIMATED BLOOD LOSS: Less than 1 cc. Jessica Gallardo MD Apr 09, 2017 03:50
[2017-04-09] MEDS: NOREPINEPHRINE 4 MG/D5W 250 ML IV PRN ×2 (04:00→14:25)
[2017-04-09 04:04] LABS: BLOOD GAS HCO3 34 mmol/L (22-26); BLOOD GAS PCO2 59 mmHg (38-42); BLOOD GAS PO2 102 mmHg (61-120)
[2017-04-09 04:05] LABS: BLOOD GAS BASE EXCESS 8.2 mmol/L (-2-2); BLOOD GAS CARBOXYHEMOGLOBIN 2.1 % (0-4); BLOOD GAS METHEMOGLOBIN 0.9 % (0-2); BLOOD GAS O2 HGB SATURATION 95 % (90-100); BLOOD GAS OXYGEN CONTENT 11.4 Vol % (12.0-20.0); BLOOD GAS TOTAL HGB 8.4 G/DL (12.0-16.0); CRITICAL VALUE YES; OXYGEN DEVICE VENTILATOR; TEMP CORR TO 98.6
[2017-04-09 04:06] LABS: DRAW SITE RT RADIAL; FIO2 100 %; NUMBER OF ARTERIAL PUNCTURES 1; STAT NO; ULNAR PULSE PRESENT; VENT SETTINGS PRVC/AC
[2017-04-09 04:15] LABS: AUTOMATED NEUTROPHIL # 15.3 TH/MM3 (1.8-7.7); BASOPHIL % 0.3 % (0.0-2.0); EOSINOPHIL # 0.3 TH/MM3 (0-0.4); EOSINOPHIL % 1.6 % (0.0-4.0); HEMATOCRIT 24.9 % (39.0-51.0); LYMPH % 3.2 % (9.0-44.0); LYMPHOCYTE # 0.5 TH/MM3 (1.0-4.8); MEAN CELL VOLUME 93.8 FL (80.0-100.0); MEAN CORPUSCULAR HGB CONC 33.1 % (32.0-36.0); MONO % 3.1 % (0.0-8.0); NEUT % 91.8 % (16.0-70.0); PLATELET COUNT 362 TH/MM3 (150-450); RED BLOOD COUNT 2.66 MIL/MM3 (4.50-5.90); RED CELL DISTRIBUTION WIDTH 13.5 % (11.6-17.2); WHITE BLOOD COUNT 16.7 TH/MM3 (4.0-11.0)
[2017-04-09] MEDS: RESP: ALBUTEROL 2.5 MG/IPRATROPIUM 0.5 MG NEB (SCH) NEB ×5 (04:19→20:41)
--- NOTE | 2017-04-09 04:33 | RADRPT ---
EXAM DATE/TIME: 04/09/2017 03:34 [facility] COMPARISON: CHEST SINGLE AP, April 09, 2017, 2:50. INDICATIONS : Central Line Placement MEDICAL HISTORY : Chronic obstructive pulmonary disease. Congestive heart failure. SURGICAL HISTORY : None. ENCOUNTER: Subsequent ACUITY: 1 week PAIN SCORE: Non-responsive. LOCATION: Bilateral chest FINDINGS: A single portable frontal view of the chest shows interval placement a right subclavian central line. Tip projects towards the cavoatrial junction. Bilateral thoracostomy tubes without pneumothorax. Dif fuse bilateral pulmonary infiltrates are unchanged. Heart is normal in size. Endotracheal tube tip 5 cm from the rani. Tip of the NG tube in the body of the stomach. CONCLUSION: 1. Right subclavian central line in good position without pneumothorax. 2. Unchanged diffuse bilateral pulmonary infiltrates. Kobe Parks Jr., MD on April 09, 2017 at 4:30 Board Certified Radiologist. This report was verified electronically.
[2017-04-09 04:46] LABS: HEMO FLAGS AUTO DIFF
[2017-04-09 04:49] LABS: BICARBONATE 34.4 MEQ/L (21.0-32.0); MAGNESIUM 2.4 MG/DL (1.5-2.5); POTASSIUM 3.6 MEQ/L (3.5-5.1)
[2017-04-09 04:52] LABS: CALCIUM-PROTEIN CORRECTED 8.5 MG/DL (8.5-10.1); TOTAL BILIRUBIN ADULT 0.9 MG/DL (0.2-1.0)
[2017-04-09 05:23] LABS: BANDS 10 % (0-6); EOSINOPHILS 2 % (0-4); METAMYELOCYTES 1 % (0-1); NEUTROPHIL # MANUAL DIFF 15.9 TH/MM3 (1.8-7.7); POLYS (SEG NEUTROPHILS) 84 % (16-70); WBC DIFF SAMPLE 100
[2017-04-09 05:25] LABS: PLATELET ESTIMATE SMEAR NORMAL (NORMAL); PLATELET MORPHOLOGY ENLARGED (NORMAL); SCAN/DIFF FINAL DIFF MANUAL
[2017-04-09 05:27] LABS: TOXIC GRANULATION 1+ (NORMAL)
[2017-04-09] MEDS: METHOCARBAMOL 500 MG TAB PO SCH ×3 (06:25→20:21)
[2017-04-09] MEDS: CHLORHEXIDINE 0.12% (ORAL KIT) 15 ML CUP MT SCH ×2 (09:20→20:22)
[2017-04-09] MEDS: LACTULOSE SYRUP 20 GM/30 ML CUP PO SCH (09:33)
[2017-04-09] MEDS: MAGNESIUM HYDROXIDE SUSP 30 ML CUP PO SCH ×2 (09:33→20:22)
[2017-04-09] MEDS: FAMOTIDINE 20 MG TAB PO SCH ×2 (09:33→20:21)
[2017-04-09] MEDS: DOCUSATE SODIUM 50 MG/SENNA 8.6 MG TAB PO SCH ×2 (09:33→20:22)
[2017-04-09] MEDS: ENOXAPARIN SODIUM 30 MG/0.3 ML SYRINGE SQ SCH ×2 (09:33→20:23)
[2017-04-09] MEDS: REMOVE OLD PATCH T-DERMAL SCH (09:34)
[2017-04-09] MEDS: SODIUM CHLORIDE 0.9% FLUSH 10 ML FLUSH IV FLUSH SCH ×2 (09:34→20:22)
[2017-04-09] MEDS: BACITRACIN TOP OINT 15 GM TUBE TOPICAL SCH ×2 (09:34→20:23)
[2017-04-09] MEDS: LIDOCAINE HCL 5% PATCH T-DERMAL SCH (09:34)
[2017-04-09] MEDS ORDERED: ALBUMIN HUMAN 5% 25 GM/500 ML BOTTLE IV ONE (10:15)
[2017-04-09] MEDS: LACTATED RINGER'S 1000 ML INJ 1,000 ML IV SCH (10:47)
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
[2017-04-09 14:15] LABS: BLOOD GAS BASE EXCESS 9.1 mmol/L (-2-2); BLOOD GAS CARBOXYHEMOGLOBIN 1.9 % (0-4); BLOOD GAS HCO3 34 mmol/L (22-26); BLOOD GAS METHEMOGLOBIN 0.8 % (0-2); BLOOD GAS O2 HGB SATURATION 95 % (90-100); BLOOD GAS OXYGEN CONTENT 12.9 Vol % (12.0-20.0); BLOOD GAS PCO2 59 mmHg (38-42); BLOOD GAS PO2 99 mmHg (61-120); BLOOD GAS TOTAL HGB 9.6 G/DL (12.0-16.0); TEMP CORR TO 98.6
[2017-04-09 14:16] LABS: CRITICAL VALUE YES; OXYGEN DEVICE VENTILATOR
[2017-04-09 14:17] LABS: DRAW SITE ART LINE; STAT NO; VENT SETTINGS SEE COMMENTS
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
--- NOTE | 2017-04-09 14:32 | PD.PROCEDR ---
Procedure Note Procedure DX: Respiratory Failure (J96.01) OP: Insertion arterial line (10433) Procedure: Yash test normal right hand. Time out performed. Wrist supinated, prepped and draped. Right radial artery cannulated and wire easily advanced. Cannula passed over wire to 3 cm. Good waveform observed. Dressing appled. Dwaine Gonzalez MD Apr 09, 2017 14:32
[2017-04-09] MEDS: CHLORHEXIDINE GLUCONATE 2 % 1 PACK (2 CLOTHS) TOP SCH (20:23)
[2017-04-10] VITALS (19 sets, daily range): BP systolic 110–144; BP diastolic 48–58; PULSE 86–112; RESP 15–24; TEMP 99.7–101.1; O2SAT 96–100
[2017-04-10] MEDS: RESP: ALBUTEROL 2.5 MG/IPRATROPIUM 0.5 MG NEB (SCH) NEB ×6 (00:19→21:50)
[2017-04-10] MEDS: LACTATED RINGER'S 1000 ML INJ 1,000 ML IV SCH ×2 (00:20→11:53)
[2017-04-10] MEDS ORDERED: MIDAZOLAM HCL 5 MG/ML VIAL (1 ML) ONE (00:30)
[2017-04-10] MEDS ORDERED: ROCURONIUM INJ 50 MG/5 ML VIAL ONE (00:36)
--- NOTE | 2017-04-10 00:41 | RADRPT ---
EXAM DATE/TIME: 04/10/2017 00:11 [facility] COMPARISON: CHEST SINGLE AP, April 09, 2017, 3:34. INDICATIONS : Extreme agitation with shortness of breath. MEDICAL HISTORY : Chronic obstructive pulmonary disease. Congestive heart failure. SURGICAL HISTORY : None. ENCOUNTER: Subsequent ACUITY: 1 week PAIN SCORE: Non-responsive. LOCATION: Bilateral chest FINDINGS: A single portable frontal view of the chest shows diffuse bilateral pulmonary infiltrates which are s hown some improvement from the prior study. Bilateral thoracostomy tubes without discernible pneumoth orax. No effusions. Heart is normal in size. Tip of the endotracheal tube 9 cm proximal to the rani . Nasogastric tube courses off the inferior margin of the film. Right subclavian central line. CONCLUSION: 1. Some improvement in the diffuse bilateral pulmonary infiltrates. 2. No pneumothorax. Kobe Parks Jr., MD on April 10, 2017 at 0:38 Board Certified Radiologist. This report was verified electronically.
[2017-04-10] MEDS: NOREPINEPHRINE 4 MG/D5W 250 ML IV PRN ×2 (00:47→10:42)
[2017-04-10] MEDS ORDERED: MIDAZOLAM 100 MG/100 ML INJ 100 ML ONE (01:52)
--- NOTE | 2017-04-10 03:03 | RADRPT ---
EXAM DATE/TIME: 04/10/2017 00:40 [facility] COMPARISON: CHEST SINGLE AP, April 10, 2017, 0:11. INDICATIONS : Repositioning of ET tube. MEDICAL HISTORY : Chronic obstructive pulmonary disease. Congestive heart failure. SURGICAL HISTORY : None. ENCOUNTER: Subsequent ACUITY: 1 week PAIN SCORE: Non-responsive. LOCATION: Bilateral chest FINDINGS: A single portable frontal view of the chest shows the tip of endotracheal tube 4 cm from the rani. Nasogastric tube, right subclavian central line, and bilateral thoracostomy tubes again seen. No pneu mothorax. Unchanged bilateral pulmonary infiltrates. Heart is normal in size. CONCLUSION: 1. Tip of endotracheal tube 4 cm from the rani. 2. Unchanged bilateral pulmonary infiltrates. Kobe Parks Jr., MD on April 10, 2017 at 1:11 Board Certified Radiologist. This report was verified electronically.
[2017-04-10 03:35] LABS: BLOOD GAS BASE EXCESS 8.8 mmol/L (-2-2); BLOOD GAS CARBOXYHEMOGLOBIN 1.7 % (0-4); BLOOD GAS HCO3 35 mmol/L (22-26); BLOOD GAS METHEMOGLOBIN 0.8 % (0-2); BLOOD GAS O2 HGB SATURATION 94 % (90-100); BLOOD GAS OXYGEN CONTENT 10.7 Vol % (12.0-20.0); BLOOD GAS PCO2 72 mmHg (38-42); BLOOD GAS PO2 92 mmHg (61-120); CRITICAL VALUE YES; OXYGEN DEVICE VENTILATOR; TEMP CORR TO 98.6
[2017-04-10 03:36] LABS: DRAW SITE ALINE; FIO2 70 %; STAT NO
[2017-04-10] MEDS ORDERED: CISATRACURIUM 100 MG/NS 250 ML IV PRN ×2 (04:00)
[2017-04-10] MEDS ORDERED: CISATRACURIUM BESYLATE 10 MG/5 ML VIAL IV PUSH PRN (04:15)
[2017-04-10 04:40] LABS: AUTOMATED NEUTROPHIL # 11.6 TH/MM3 (1.8-7.7); BASOPHIL % 0.3 % (0.0-2.0); EOSINOPHIL # 0.5 TH/MM3 (0-0.4); EOSINOPHIL % 3.5 % (0.0-4.0); HEMATOCRIT 24.1 % (39.0-51.0); HEMO FLAGS DIFF FINAL; LYMPH % 4.9 % (9.0-44.0); LYMPHOCYTE # 0.6 TH/MM3 (1.0-4.8); MEAN CELL VOLUME 93.8 FL (80.0-100.0); MEAN CORPUSCULAR HEMOGLOBIN 30.6 PG (27.0-34.0); MEAN CORPUSCULAR HGB CONC 32.6 % (32.0-36.0); MONO % 3.4 % (0.0-8.0); NEUT % 87.9 % (16.0-70.0); PLATELET COUNT 416 TH/MM3 (150-450); RED BLOOD COUNT 2.57 MIL/MM3 (4.50-5.90); RED CELL DISTRIBUTION WIDTH 13.8 % (11.6-17.2); WHITE BLOOD COUNT 13.2 TH/MM3 (4.0-11.0)
[2017-04-10 04:55] LABS: BICARBONATE 35.5 MEQ/L (21.0-32.0); CALCIUM-PROTEIN CORRECTED 8.4 MG/DL (8.5-10.1); POTASSIUM 3.7 MEQ/L (3.5-5.1); TOTAL BILIRUBIN ADULT 0.7 MG/DL (0.2-1.0)
[2017-04-10] MEDS: METHOCARBAMOL 500 MG TAB PO SCH ×3 (06:13→22:54)
[2017-04-10] MEDS: CHLORHEXIDINE 0.12% (ORAL KIT) 15 ML CUP MT SCH ×2 (08:29→20:49)
[2017-04-10] MEDS: SODIUM CHLORIDE 0.9% FLUSH 10 ML FLUSH IV FLUSH SCH ×2 (08:30→20:50)
[2017-04-10] MEDS: BACITRACIN TOP OINT 15 GM TUBE TOPICAL SCH ×2 (08:30→20:50)
[2017-04-10] MEDS: MAGNESIUM HYDROXIDE SUSP 30 ML CUP PO SCH ×2 (08:35→20:48)
[2017-04-10] MEDS: DOCUSATE SODIUM 50 MG/SENNA 8.6 MG TAB PO SCH ×2 (08:35→20:49)
[2017-04-10] MEDS: LACTULOSE SYRUP 20 GM/30 ML CUP PO SCH (08:35)
[2017-04-10] MEDS: FAMOTIDINE 20 MG TAB PO SCH ×2 (08:35→20:49)
[2017-04-10] MEDS: REMOVE OLD PATCH T-DERMAL SCH (08:36)
[2017-04-10] MEDS: LIDOCAINE HCL 5% PATCH T-DERMAL SCH (08:36)
[2017-04-10] MEDS: ENOXAPARIN SODIUM 30 MG/0.3 ML SYRINGE SQ SCH ×2 (08:36→20:48)
[2017-04-10] MEDS: fentaNYL DRIP 250 ML IV PRN ×2 (10:43→20:00)
[2017-04-10] MEDS ORDERED: SODIUM CHLOR 0.9% 250 ML INJ 250 ML IV ONE (11:00)
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
[2017-04-10 12:54] LABS: BLOOD GAS BASE EXCESS 10.3 mmol/L (-2-2); BLOOD GAS CARBOXYHEMOGLOBIN 1.5 % (0-4); BLOOD GAS HCO3 37 mmol/L (22-26); BLOOD GAS METHEMOGLOBIN 0.8 % (0-2); BLOOD GAS O2 HGB SATURATION 96 % (90-100); BLOOD GAS OXYGEN CONTENT 11.3 Vol % (12.0-20.0); BLOOD GAS PCO2 74 mmHg (38-42); BLOOD GAS PO2 109 mmHg (61-120); BLOOD GAS TOTAL HGB 8.2 G/DL (12.0-16.0); TEMP CORR TO 98.6
[2017-04-10 12:55] LABS: CRITICAL VALUE YES
[2017-04-10 12:56] LABS: OXYGEN DEVICE VENTILATOR
[2017-04-10 12:57] LABS: DRAW SITE ART LINE; FIO2 55 %; VENT SETTINGS APRV/BIPHASIC
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
[2017-04-10] MEDS: ACETAMINOPHEN 325 MG TAB PO PRN (13:47)
[2017-04-10] MEDS: MIDAZOLAM 100 MG/NS 100 ML DRIP Premix IV PRN (16:02)
[2017-04-10 16:40] LABS: HEMATOCRIT 24.5 % (39.0-51.0)
[2017-04-10 16:45] LABS: REVIEW FLAG FINAL
[2017-04-10 17:01] LABS: BLOOD, URINE NEG (NEG); COMMENT (UR) CATH-CULT NOT IND; CULTURE IF INDICATED CATH CULTURE NOT IND; GLUCOSE,URINE NEG (NEG); KETONE, URINE NEG (NEG); MUCUS URINE FEW /lpf (OCC); NITRITE,URINE NEG (NEG); PH, URINE 5.5 (5.0-8.5); SQUAMOUS EPITHELIAL CELL URINE <1 /hpf (0-5); URINE COLOR YELLOW (YELLW/STRAW)
[2017-04-11] VITALS (17 sets, daily range): BP systolic 106–142; BP diastolic 48–60; PULSE 100–135; RESP 18–35; TEMP 100.4–101.8; O2SAT 90–100
[2017-04-11] MEDS: RESP: ALBUTEROL 2.5 MG/IPRATROPIUM 0.5 MG NEB (SCH) NEB ×7 (00:35→23:54)
[2017-04-11] MEDS: CHLORHEXIDINE GLUCONATE 2 % 1 PACK (2 CLOTHS) TOP SCH (04:00)
[2017-04-11] MEDS: LACTATED RINGER'S 1000 ML INJ 1,000 ML IV SCH (05:03)
[2017-04-11 05:04] LABS: BLOOD GAS BASE EXCESS 7.5 mmol/L (-2-2); BLOOD GAS CARBOXYHEMOGLOBIN 1.8 % (0-4); BLOOD GAS HCO3 33 mmol/L (22-26); BLOOD GAS O2 HGB SATURATION 94 % (90-100); BLOOD GAS OXYGEN CONTENT 11.7 Vol % (12.0-20.0); BLOOD GAS PCO2 61 mmHg (38-42); BLOOD GAS PO2 88 mmHg (61-120); BLOOD GAS TOTAL HGB 8.8 G/DL (12.0-16.0); TEMP CORR TO 98.6
[2017-04-11 05:06] LABS: CRITICAL VALUE YES; OXYGEN DEVICE VENTILATOR; VENT SETTINGS BILEVEL/
[2017-04-11 05:07] LABS: DRAW SITE ART LINE; FIO2 45 %; STAT NO
[2017-04-11 05:15] LABS: BASOPHIL # 0.1 TH/MM3 (0-0.2); BASOPHIL % 0.8 % (0.0-2.0); EOSINOPHIL # 0.4 TH/MM3 (0-0.4); EOSINOPHIL % 2.1 % (0.0-4.0); HEMATOCRIT 26.5 % (39.0-51.0); LYMPH % 4.1 % (9.0-44.0); LYMPHOCYTE # 0.7 TH/MM3 (1.0-4.8); MEAN CELL VOLUME 89.5 FL (80.0-100.0); MEAN CORPUSCULAR HGB CONC 32.4 % (32.0-36.0); MONO % 3.5 % (0.0-8.0); NEUT % 89.5 % (16.0-70.0); PLATELET COUNT 458 TH/MM3 (150-450); RED BLOOD COUNT 2.96 MIL/MM3 (4.50-5.90); RED CELL DISTRIBUTION WIDTH 20.2 % (11.6-17.2); WHITE BLOOD COUNT 16.8 TH/MM3 (4.0-11.0)
[2017-04-11] MEDS: METHOCARBAMOL 500 MG TAB PO SCH ×3 (05:15→21:16)
[2017-04-11 05:18] LABS: HEMO FLAGS AUTO DIFF
[2017-04-11 05:39] LABS: ALT (GPT) 17 U/L (12-78); ANION GAP 5 MEQ/L (5-15); AST (GOT) 47 U/L (15-37); BICARBONATE 33.2 MEQ/L (21.0-32.0); BLOOD UREA NITROGEN 17 MG/DL (7-18); CHLORIDE 104 MEQ/L (98-107); GLOMERULAR FILTRATION RATE 178 ML/MIN (>89); POTASSIUM 3.9 MEQ/L (3.5-5.1); SODIUM (NA) 142 MEQ/L (136-145)
[2017-04-11 05:41] LABS: ALKALINE PHOSPHATASE 84 U/L (45-117); TOTAL BILIRUBIN ADULT 0.7 MG/DL (0.2-1.0)
--- NOTE | 2017-04-11 05:44 | RADRPT ---
EXAM DATE/TIME: 04/11/2017 04:31 [facility] COMPARISON: CHEST SINGLE AP, April 10, 2017, 0:40. INDICATIONS : Evaluate for pnuemothorax MEDICAL HISTORY : Chronic obstructive pulmonary disease. Congestive heart failure. SURGICAL HISTORY : None. ENCOUNTER: Subsequent ACUITY: 1 week PAIN SCORE: Non-responsive. LOCATION: Bilateral chest FINDINGS: Endotracheal tube is stable in satisfactory position. Nasogastric tube descends to the stomach. Right subclavian central line is stable. Bilateral thoracostomy tubes are stable. There is no evidence of pneumothorax. Persistent diffuse bilateral alveolar opacity. Little or no change. Cardiac contours ar e stable. CONCLUSION: Stable chest appearance. Jose Romero MD on April 11, 2017 at 5:42 Board Certified Radiologist. This report was verified electronically.
[2017-04-11 06:43] LABS: BANDS 4 % (0-6); EOSINOPHILS 3 % (0-4); NEUTROPHIL # MANUAL DIFF 15.1 TH/MM3 (1.8-7.7); POLYS (SEG NEUTROPHILS) 86 % (16-70); WBC DIFF SAMPLE 100
[2017-04-11 06:44] LABS: PLATELET ESTIMATE SMEAR HIGH (NORMAL); PLATELET MORPHOLOGY NORMAL (NORMAL); SCAN/DIFF FINAL DIFF MANUAL
--- NOTE | 2017-04-11 07:53 | PD.ORT.PN ---
Subjective Subjective Remarks Intubated. Objective Vitals Vital Signs Date Time Temp Pulse Resp B/P (MAP) Pulse Ox O2 Delivery O2 Flow Rate FiO2 04/11/17 06:00 111 04/11/17 06:00 111 112/48 (69) 04/11/17 04:00 100.4 114 18 100 106/60 (75) 04/11/17 04:00 100 04/11/17 04:00 45 04/11/17 03:59 100 45 04/11/17 02:00 102 04/11/17 00:43 100 55 04/11/17 00:00 100.6 102 18 100 106/60 (75) 04/11/17 00:00 102 04/11/17 00:00 55 04/10/17 22:00 102 04/10/17 21:52 98 55 04/10/17 20:00 55 04/10/17 20:00 100 04/10/17 20:00 100.8 100 15 100 110/50 (70) 04/10/17 19:00 98 Mechanical Ventilator 55 04/10/17 18:00 102 04/10/17 18:00 102 126/54 (78) 04/10/17 16:42 98 55 04/10/17 16:00 60 04/10/17 16:00 100.2 110 24 98 126/54 (78) 04/10/17 16:00 110 04/10/17 14:00 102 04/10/17 13:45 101.1 107 23 127/50 100 04/10/17 13:29 100.9 112 23 144/51 100 04/10/17 12:12 99 55 04/10/17 12:00 60 04/10/17 12:00 100.4 96 23 99 120/56 (77) 04/10/17 12:00 95 04/10/17 11:14 96 126/58 (80) 04/10/17 10:42 102 105/59 04/10/17 10:00 98 04/10/17 09:19 99 60 04/10/17 08:30 90 110/51 04/10/17 08:00 60 04/10/17 08:00 99.7 88 21 98 110/54 (72) 04/10/17 08:00 86 I/O 10/8/17 10/02/1704/10/17 04/11/17 04/11/17 04/11/17 07:00 15:00 23:00 07:00 15:00 23:00 Intake Total 2275 ml 3163 ml 1699 ml Output Total 1080 ml 175.0 ml 1470 ml 1370 ml Balance 1195 ml -175.0 ml 1693 ml 329 ml IV Total 1743 ml 2095 ml 1217 ml Tube Feeding 412 ml 378 ml 232 ml Packed Cells 400 ml Blood Product IV Normal Saline Flush 250 ml Tube Irrigant 120 ml 40 ml 250 ml Output Urine Total 1000 ml 1450 ml 1350 ml Tube Feeding Residual Discard 175.0 ml Chest Tube Drainage Total 80 ml 20 ml 20 ml # Bowel Movements 0 0 0 Result Diagram: 04/11/17 0506 04/11/17 0506 Imaging Last 24 hours Impressions Chest X-Ray 04/02/17 0600 Signed Impressions: Service Date/Time: Tuesday, April 02, 2017 03:59 - CONCLUSION: 1. Bilateral chest tubes without significant pneumothorax. Multiple right rib fractures. Minimal airspace disease in the lungs. No significant change since April 01. Raheel West MD Objective Remarks Pelvis :dressings clean and dry. intact. +cap refill distally B LE Assessment & Plan Problem List: (1) Fracture of spinous process of thoracic vertebra ICD Codes: S22.008A - Other fracture of unspecified thoracic vertebra, initial encounter for closed fracture Status: Acute Qualifiers: (2) Ribs, multiple fractures ICD Codes: S22.49XA - Multiple fractures of ribs, unspecified side, initial encounter for closed fracture Status: Acute Qualifiers: (3) Bilateral pneumothoraces ICD Codes: J93.9 - Pneumothorax, unspecified Status: Acute (4) Nasal bone fracture ICD Codes: S02.2XXA - Fracture of nasal bones, initial encounter for closed fracture Status: Acute Qualifiers: (5) Forehead laceration ICD Codes: S01.81XA - Laceration without foreign body of other part of head, initial encounter Status: Acute Qualifiers: (6) Fracture of iliac wing ICD Codes: S32.309A - Unspecified fracture of unspecified ilium, initial encounter for closed fracture Status: Acute Qualifiers: (7) Polysubstance dependence in controlled environment ICD Codes: F19.20 - Other psychoactive substance dependence, uncomplicated (8) Left acetabular fracture ICD Codes: S32.402A - Unspecified fracture of left acetabulum, initial encounter for closed fracture Qualifiers: Qualified Codes: S32.402A - Unspecified fracture of left acetabulum, initial encounter for closed fracture (9) Fracture of left superior pubic ramus ICD Codes: S32.512A - Fracture of superior rim of left pubis, initial encounter for closed fracture Qualifiers: Qualified Codes: S32.512A - Fracture of superior rim of left pubis, initial encounter for closed fracture (10) Fracture of left inferior pubic ramus ICD Codes: S32.592A - Other specified fracture of left pubis, initial encounter for closed fracture Qualifiers: Qualified Codes: S32.592A - Other specified fracture of left pubis, initial encounter for closed fracture Assessment and Plan 1) Left Acetabulum Fx with Ilium involvement s/p ORIF - POD 7(04/04) -NWB -daily dressing changes 2 sprain to left sternoclavicular joint nonoperative treatment -CM for rehab placement vs home -medical management -DVT prophylaxis Manny Jean Jr. Apr 11, 2017 07:53
[2017-04-11] MEDS: CHLORHEXIDINE 0.12% (ORAL KIT) 15 ML CUP MT SCH ×2 (08:00→20:45)
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
[2017-04-11] MEDS: SODIUM CHLORIDE 0.9% FLUSH 10 ML FLUSH IV FLUSH SCH ×2 (09:00→20:46)
[2017-04-11] MEDS: BACITRACIN TOP OINT 15 GM TUBE TOPICAL SCH ×2 (09:00→20:47)
[2017-04-11] MEDS: REMOVE OLD PATCH T-DERMAL SCH (09:00)
[2017-04-11] MEDS: MAGNESIUM HYDROXIDE SUSP 30 ML CUP PO SCH ×2 (09:21→20:45)
[2017-04-11] MEDS: ENOXAPARIN SODIUM 30 MG/0.3 ML SYRINGE SQ SCH ×2 (09:22→20:47)
[2017-04-11] MEDS: DOCUSATE SODIUM 50 MG/SENNA 8.6 MG TAB PO SCH ×2 (09:22→20:46)
[2017-04-11] MEDS: FAMOTIDINE 20 MG TAB PO SCH ×2 (09:22→20:46)
[2017-04-11] MEDS: LACTULOSE SYRUP 20 GM/30 ML CUP PO SCH (09:22)
[2017-04-11] MEDS: LIDOCAINE HCL 5% PATCH T-DERMAL SCH (09:23)
[2017-04-11] MEDS: fentaNYL DRIP 250 ML IV PRN ×2 (09:26→16:54)
[2017-04-11] MEDS: ACETAMINOPHEN 325 MG TAB PO PRN ×2 (09:33→15:26)
[2017-04-11] MEDS: MIDAZOLAM 100 MG/NS 100 ML DRIP Premix IV PRN (12:21)
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
[2017-04-11] MEDS: LEVOFLOXACIN 500 MG PREMIX INJ 100 ML IV SCH (16:54)
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
[2017-04-12] VITALS (19 sets, daily range): BP systolic 108–137; BP diastolic 55–67; PULSE 94–122; RESP 18–25; TEMP 97.5–99.2; O2SAT 93–100
[2017-04-12] MEDS: MIDAZOLAM 100 MG/NS 100 ML DRIP Premix IV PRN ×3 (01:28→20:37)
[2017-04-12] MEDS: RESP: ALBUTEROL 2.5 MG/IPRATROPIUM 0.5 MG NEB (SCH) NEB ×6 (02:55→23:28)
[2017-04-12] MEDS: fentaNYL DRIP 250 ML IV PRN ×2 (03:01→15:18)
[2017-04-12 03:47] LABS: BLOOD GAS CARBOXYHEMOGLOBIN 1.5 % (0-4); BLOOD GAS HCO3 32 mmol/L (22-26); BLOOD GAS METHEMOGLOBIN 0.7 % (0-2); BLOOD GAS O2 HGB SATURATION 95 % (90-100); BLOOD GAS OXYGEN CONTENT 12.3 Vol % (12.0-20.0); BLOOD GAS PCO2 72 mmHg (38-42); BLOOD GAS PO2 101 mmHg (61-120); BLOOD GAS TOTAL HGB 9.1 G/DL (12.0-16.0); CRITICAL VALUE YES; OXYGEN DEVICE VENTILATOR; TEMP CORR TO 98.6
[2017-04-12 03:48] LABS: FIO2 60 %; VENT SETTINGS PRVC/AC
[2017-04-12 03:49] LABS: DRAW SITE ART LINE; STAT NO
[2017-04-12] MEDS: CHLORHEXIDINE GLUCONATE 2 % 1 PACK (2 CLOTHS) TOP SCH (04:00)
[2017-04-12 05:06] LABS: AUTOMATED NEUTROPHIL # 18.7 TH/MM3 (1.8-7.7); BASOPHIL % 0.2 % (0.0-2.0); EOSINOPHIL % 0.2 % (0.0-4.0); HEMATOCRIT 27.8 % (39.0-51.0); LYMPH % 3.3 % (9.0-44.0); LYMPHOCYTE # 0.7 TH/MM3 (1.0-4.8); MEAN CELL VOLUME 91.3 FL (80.0-100.0); MEAN CORPUSCULAR HEMOGLOBIN 29.3 PG (27.0-34.0); MEAN CORPUSCULAR HGB CONC 32.1 % (32.0-36.0); MONO % 3.7 % (0.0-8.0); NEUT % 92.6 % (16.0-70.0); PLATELET COUNT 492 TH/MM3 (150-450); RED BLOOD COUNT 3.04 MIL/MM3 (4.50-5.90); RED CELL DISTRIBUTION WIDTH 20.1 % (11.6-17.2); WHITE BLOOD COUNT 20.2 TH/MM3 (4.0-11.0)
[2017-04-12 05:18] LABS: HEMO FLAGS AUTO DIFF
[2017-04-12 05:33] LABS: ALT (GPT) 15 U/L (12-78); ANION GAP 6 MEQ/L (5-15); AST (GOT) 39 U/L (15-37); BICARBONATE 33.1 MEQ/L (21.0-32.0); BLOOD UREA NITROGEN 23 MG/DL (7-18); CHLORIDE 105 MEQ/L (98-107); GLOMERULAR FILTRATION RATE 170 ML/MIN (>89); POTASSIUM 4.1 MEQ/L (3.5-5.1); SODIUM (NA) 144 MEQ/L (136-145)
[2017-04-12 05:36] LABS: ALKALINE PHOSPHATASE 101 U/L (45-117); TOTAL BILIRUBIN ADULT 0.5 MG/DL (0.2-1.0)
--- NOTE | 2017-04-12 05:54 | RADRPT ---
EXAM DATE/TIME: 04/12/2017 04:58 [facility] COMPARISON: CHEST SINGLE AP, April 11, 2017, 4:31. INDICATIONS : Short of breath. MEDICAL HISTORY : Chronic obstructive pulmonary disease. Congestive heart failure. SURGICAL HISTORY : None. ENCOUNTER: Subsequent ACUITY: 1 week PAIN SCORE: Non-responsive. LOCATION: Bilateral chest FINDINGS: Endotracheal tube, nasogastric tube, right subclavian central line and thoracostomy tubes are stable in good position. Persistent bilateral primarily lower lung zone alveolar opacities. Cardiac contour is grossly unchanged. CONCLUSION: No significant change Jose Romero MD on April 12, 2017 at 5:52 Board Certified Radiologist. This report was verified electronically.
[2017-04-12 06:05] LABS: BLOOD GAS BASE EXCESS 6.2 mmol/L (-2-2); BLOOD GAS CARBOXYHEMOGLOBIN 1.6 % (0-4); BLOOD GAS HCO3 32 mmol/L (22-26); BLOOD GAS METHEMOGLOBIN 0.9 % (0-2); BLOOD GAS O2 HGB SATURATION 93 % (90-100); BLOOD GAS OXYGEN CONTENT 11.7 Vol % (12.0-20.0); BLOOD GAS PCO2 69 mmHg (38-42); BLOOD GAS PO2 81 mmHg (61-120); BLOOD GAS TOTAL HGB 8.8 G/DL (12.0-16.0); TEMP CORR TO 98.6
[2017-04-12 06:06] LABS: CRITICAL VALUE YES; DRAW SITE ART LINE; FIO2 60 %; OXYGEN DEVICE VENTILATOR; STAT NO; VENT SETTINGS PRVC/AC
[2017-04-12 06:43] LABS: BANDS 23 % (0-6); NEUTROPHIL # MANUAL DIFF 18.4 TH/MM3 (1.8-7.7); PLATELET ESTIMATE SMEAR HIGH (NORMAL); PLATELET MORPHOLOGY NORMAL (NORMAL); POLYS (SEG NEUTROPHILS) 68 % (16-70); SCAN/DIFF FINAL DIFF MANUAL; WBC DIFF SAMPLE 100
[2017-04-12] MEDS: METHOCARBAMOL 500 MG TAB PO SCH ×2 (07:28→13:49)
[2017-04-12] MEDS: CHLORHEXIDINE 0.12% (ORAL KIT) 15 ML CUP MT SCH ×2 (08:00→20:18)
--- NOTE | 2017-04-12 08:27 | HHI.PR ---
Neuropsych Emotional Emotional: UnabletoAssess: Emotional, Anxious/Fearful, Depressed/Sad, Hostile/ Resentful, Irritable/Angry/Frustrate, Labile, Constricted/Blunted Behavior Behavior: Unable to Asses: Behavior, Coping/Acceptance, Cooperative w/ Treatment, Motivation, Frustration Tolerance/[place], Impulsive/Agitated, Suicidal/ Homicidal Risk Cognitive Cognitive: Unable to Asses: Cognitive, Attention/Concentration, Confused/ Orientation, Insight/Awareness, Judgement/Problem-Solving, Memory Psychosocial Psychosocial: Severe: Psychosocial, Family/Other Adjustment, Realistic Expectation, Unable to Asses: Self-Esteem/Confidence Progress Notes/Response to Tx Contents of Sessions: Adjustment Time with Patient: 15 minutes Premorbid psychological status Premorbid Cognitive, Emotional and Behavioral Status: Unable to Assess. The patient's educational and occupational histories are not able to be determined. Substance abuse history is documented. Behavioral Reactions of Patient and Family/Support System: Unable to Assess. The patients family is experiencing ongoing issues of adjustment given the nature of the injury, and this aspect of recovery will require ongoing monitoring. Emotional/Behavioral Status of Patient and Family/Support System: Unable to Assess. Pertinent issues, if appropriate to this patients clinical care, are described in detail above. Maximizing acute care outcome It is recommended that the patient be monitored for emergent behavioral impulsivity as the medical condition evolves. This patients polysubstance dependence challenges may limit their rehabilitation potential going forward, and these challenges will require specialized therapeutic skills to maximize outcome. Anticipated Problems Ongoing areas of concern will include behavioral impulsivity, lack of insight and judgment, which may or many not improve with time and treatment. Treatment Plan This clinician will continue to follow with you throughout the course of this patients acute care treatment, and I will be available to meet with the patient s family/support system to facilitate their understanding and the ongoing care of their family member. The goals of neuropsychological intervention shall be both educational and supportive to the family/support system as is deemed clinically appropriate. Impression 36 year old male s/p multi trauma with history of polysubstance dependence. Diagnosis: (1) Polysubstance dependence in controlled environment Progress Note Narrative Ongoing follow-up of patient seen during daily trauma rounds. This is day 11 post injury. The patient remains intubated and sedated. He has moderate to severe ARDS. There are no new neurobehavioral issues. I will continue to follow. Ulysses Bucio PhD Apr 12, 2017 8:27 am
[2017-04-12] MEDS: MAGNESIUM HYDROXIDE SUSP 30 ML CUP PO SCH ×2 (08:45→20:16)
[2017-04-12] MEDS: ENOXAPARIN SODIUM 30 MG/0.3 ML SYRINGE SQ SCH ×2 (08:50→20:17)
[2017-04-12] MEDS: FAMOTIDINE 20 MG TAB PO SCH ×2 (08:50→20:16)
[2017-04-12] MEDS: SODIUM CHLORIDE 0.9% FLUSH 10 ML FLUSH IV FLUSH SCH ×2 (08:51→20:17)
[2017-04-12] MEDS: LIDOCAINE HCL 5% PATCH T-DERMAL SCH (08:51)
[2017-04-12] MEDS: LACTULOSE SYRUP 20 GM/30 ML CUP PO SCH (08:51)
[2017-04-12] MEDS: REMOVE OLD PATCH T-DERMAL SCH (08:52)
[2017-04-12] MEDS: BACITRACIN TOP OINT 15 GM TUBE TOPICAL SCH ×2 (08:52→20:18)
[2017-04-12] MEDS: DOCUSATE SODIUM 50 MG/SENNA 8.6 MG TAB PO SCH ×2 (08:52→20:16)
--- NOTE | 2017-04-12 10:05 | EKG ---
Date Performed: 04/11/2017 Time Performed: 17:05:10 PTAGE: 46 years EKG: Sinus tachycardia. Lateral T wave changes are nonspecific Borderline ECG PREVIOUS TRACING : 02/17/2017 20.45 Compared to the prior study, rate is faster. Nonspecific T- wave changes are now present in inferior leads. DOCTOR: Hank Hightower Interpretating Date/Time 04/12/2017 10:02:13
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
[2017-04-12] MEDS: CEFEPIME INJ 2,000 MG in SODIUM CHLORIDE 0.9% INJ 100 ML IV SCH (13:49)
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
--- NOTE | 2017-04-12 14:31 | ECHRPT ---
Indication: Shortness of breath CONCLUSIONS The left ventricular systolic function is low normal with an estimated ejection fraction in the rang e of 50- 55%. Wall thickness is measured at the upper limits of normal. There is mild tricuspid valve regurgitation. There is a small pericardial effusion present. No hemodynamically significant echocardiographic feat ures were observed (no pre-tamponade physiology). BP: / HR: 100 Rhythm: Sinus MEASUREMENTS (Male / Female) Normal Values Technical Quality:Fair 2D ECHO LV Diastolic Diameter PLAX 4.5 cm 4.2 - 5.9 / 3.9 - 5.3 cm LV Systolic Diameter PLAX 3.6 cm IVS Diastolic Thickness 1.0 cm 0.6 - 1.0 / 0.6 - 0.9 cm LVPW Diastolic Thickness 1.0 cm 0.6 - 1.0 / 0.6 - 0.9 cm LV Relative Wall Thickness 0.4 LVOT Diameter 2.2 cm M-MODE Aortic Root Diameter MM 3.8 cm LA Systolic Diameter MM 2.7 cm LA Ao Ratio MM 0.7 AV Cusp Separation MM 2.5 cm DOPPLER AV Peak Velocity 163.0 cm/s AV Peak Gradient 10.6 mmHg LVOT Peak Velocity 105.0 cm/s LVOT Peak Gradient 4.4 mmHg AV Area Cont Eq pk 2.4 cm Mitral E Point Velocity 90.8 cm/s Mitral A Point Velocity 50.8 cm/s Mitral E to A Ratio 1.8 LV E' Lateral Velocity 13.2 cm/s Mitral E to LV E' Lateral Ratio 6.9 LV E' Septal Velocity 8.2 cm/s Mitral E to LV E' Septal Ratio 11.1 TR Peak Velocity 247.0 cm/s TR Peak Gradient 24.4 mmHg Right Atrial Pressure 10.0 mmHg Pulmonary Artery Systolic Pressu 34.4 mmHg Right Ventricular Systolic Press 34.4 mmHg PV Peak Velocity 151.0 cm/s PV Peak Gradient 9.1 mmHg FINDINGS LEFT VENTRICLE The left ventricular systolic function is low normal with an estimated ejection fraction in the rang e of 50- 55%. Wall thickness is measured at the upper limits of normal. Normal left ventricular size. RIGHT VENTRICLE The right ventricular systoilc function is normal. The right ventriclar size is upper limits of normal. LEFT ATRIUM The left atrial size is normal. RIGHT ATRIUM The right atrial size is normal. ATRIAL SEPTUM The interatrial septum not well visualized. AORTA The aortic root and proximal ascending aorta are normal in size on limited imaging. MITRAL VALVE Structurally normal mitral valve. No mitral valve stenosis or regurgitation. AORTIC VALVE Trileaflet aortic valve. No aortic valve stenosis or regurgitation. TRICUSPID VALVE Structurally normal tricuspid valve. There is mild tricuspid valve regurgitation. The estimated pulmonary arterial pressure is 34.4 mmHg. PULMONARY VALVE The pulmonary valve is not well visualized. VESSELS The inferior vena cava is normal in size. PERICARDIUM There is a small pericardial effusion present. No hemodynamically significant echocardiographic feat ures were observed (no pre-tamponade physiology). Erlin Marquez DO (Electronically Signed) Final Date:12 April 2017 14:30
[2017-04-12 15:06] LABS: BLOOD, URINE NEG (NEG); COMMENT (UR) CATH-CULT NOT IND; GLUCOSE,URINE NEG (NEG); KETONE, URINE NEG (NEG); NITRITE,URINE NEG (NEG); TRIPLE PHOSPHATE CRYSTAL,URINE OCC /hpf; URINE COLOR YELLOW (YELLW/STRAW)
[2017-04-12 15:07] LABS: CULTURE IF INDICATED CATH CULTURE NOT IND
[2017-04-12] MEDS: LEVOFLOXACIN 500 MG PREMIX INJ 100 ML IV SCH (17:07)
[2017-04-13] VITALS (17 sets, daily range): BP systolic 93–142; BP diastolic 44–66; PULSE 86–117; RESP 22–31; TEMP 98.1–100.2; O2SAT 90–100
[2017-04-13] MEDS: CEFEPIME INJ 2,000 MG in SODIUM CHLORIDE 0.9% INJ 100 ML IV SCH ×2 (00:34→13:19)
[2017-04-13] MEDS: METHOCARBAMOL 500 MG TAB PO SCH ×4 (00:34→22:00)
[2017-04-13] MEDS: fentaNYL DRIP 250 ML IV PRN (03:10)
[2017-04-13] MEDS: CHLORHEXIDINE GLUCONATE 2 % 1 PACK (2 CLOTHS) TOP SCH (03:10)
[2017-04-13] MEDS: RESP: ALBUTEROL 2.5 MG/IPRATROPIUM 0.5 MG NEB (SCH) NEB (03:16)
[2017-04-13] MEDS: MIDAZOLAM 100 MG/NS 100 ML DRIP Premix IV PRN ×2 (06:46→17:00)
[2017-04-13] MEDS: CHLORHEXIDINE 0.12% (ORAL KIT) 15 ML CUP MT SCH ×2 (08:00→19:37)
[2017-04-13] MEDS: LIDOCAINE HCL 5% PATCH T-DERMAL SCH (08:12)
[2017-04-13] MEDS: SODIUM CHLORIDE 0.9% FLUSH 10 ML FLUSH IV FLUSH SCH ×2 (08:12→19:42)
[2017-04-13] MEDS: REMOVE OLD PATCH T-DERMAL SCH (08:12)
[2017-04-13] MEDS: ENOXAPARIN SODIUM 30 MG/0.3 ML SYRINGE SQ SCH ×2 (08:12→19:39)
[2017-04-13] MEDS: LACTULOSE SYRUP 20 GM/30 ML CUP PO SCH (08:12)
[2017-04-13] MEDS: FAMOTIDINE 20 MG TAB PO SCH ×2 (08:12→19:41)
[2017-04-13] MEDS: MAGNESIUM HYDROXIDE SUSP 30 ML CUP PO SCH ×2 (08:12→19:41)
[2017-04-13] MEDS: DOCUSATE SODIUM 50 MG/SENNA 8.6 MG TAB PO SCH ×2 (08:13→19:41)
[2017-04-13] MEDS: BACITRACIN TOP OINT 15 GM TUBE TOPICAL SCH ×2 (08:13→19:41)
[2017-04-13 08:29] LABS: BLOOD GAS BASE EXCESS 6.7 mmol/L (-2-2); BLOOD GAS CARBOXYHEMOGLOBIN 1.3 % (0-4); BLOOD GAS HCO3 32 mmol/L (22-26); BLOOD GAS METHEMOGLOBIN 0.8 % (0-2); BLOOD GAS O2 HGB SATURATION 94 % (90-100); BLOOD GAS OXYGEN CONTENT 12.3 Vol % (12.0-20.0); BLOOD GAS PCO2 60 mmHg (38-42); BLOOD GAS PO2 81 mmHg (61-120); BLOOD GAS TOTAL HGB 9.3 G/DL (12.0-16.0); TEMP CORR TO 98.6
[2017-04-13 08:30] LABS: CRITICAL VALUE YES; DRAW SITE ART LINE; FIO2 60 %; NUMBER OF ARTERIAL PUNCTURES 0; OXYGEN DEVICE VENTILATOR; STAT NO; ULNAR PULSE PRESENT; VENT SETTINGS PRVC/22/550/PEEP16
[2017-04-13 09:02] LABS: HEMATOCRIT 27.5 % (39.0-51.0); MEAN CELL VOLUME 90.9 FL (80.0-100.0); MEAN CORPUSCULAR HEMOGLOBIN 29.5 PG (27.0-34.0); MEAN CORPUSCULAR HGB CONC 32.5 % (32.0-36.0); PLATELET COUNT 418 TH/MM3 (150-450); RED BLOOD COUNT 3.03 MIL/MM3 (4.50-5.90); RED CELL DISTRIBUTION WIDTH 20.7 % (11.6-17.2); WHITE BLOOD COUNT 16.1 TH/MM3 (4.0-11.0)
[2017-04-13 09:07] LABS: REVIEW FLAG FINAL
[2017-04-13 09:16] LABS: BICARBONATE 31.5 MEQ/L (21.0-32.0); POTASSIUM 3.4 MEQ/L (3.5-5.1)
[2017-04-13] MEDS: POTASSIUM CHLORIDE 25 MEQ EFFERVESCENT TAB PO PRN (09:42)
[2017-04-13] MEDS ORDERED: LORazepam 2 MG/ML VIAL IV PUSH PRN (10:00)
[2017-04-13] MEDS: PROPOFOL 1000 MG/100 ML INJ 100 ML IV PRN ×3 (10:26→22:28)
--- NOTE | 2017-04-13 10:39 | RADRPT ---
EXAM DATE/TIME: 04/13/2017 08:54 [facility] COMPARISON: CHEST SINGLE AP, April 12, 2017, 4:58. INDICATIONS : Short of breath. MEDICAL HISTORY : Non-responsive. SURGICAL HISTORY : Non-responsive. ENCOUNTER: Subsequent ACUITY: 2 weeks PAIN SCORE: Non-responsive. LOCATION: Bilateral chest FINDINGS: There is a stable ETT, right subclavian central line, NGT coursing beyond the GE junction and bilater al chest tubes. The stable bilateral patchy lower lung zone airspace disease, more confluent in the r ight lower lung zone. Cardiomediastinal contours are stable. Remainder of exam is unchanged. CONCLUSION: 1. Stable tubes and lines, as above. 2. Stable bilateral patchy lower lung zone airspace disease, more confluent on the right. Ranjan Marion MD on April 13, 2017 at 10:04 Board Certified Radiologist. This report was verified electronically.
[2017-04-13] MEDS ORDERED: TERBUTALINE INJ 1 MG/ML AMP SQ PRN (11:00)
[2017-04-13] MEDS ORDERED: NOREPINEPHRINE INJ 4 MG in SODIUM CHLOR 0.9% 250 ML INJ 246 ML IV PRN (11:00)
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
[2017-04-13] MEDS: HYDROMORPHONE IV SCH (12:14)
[2017-04-13] MEDS: SODIUM CHLORIDE 0.9% IV SCH (12:14)
[2017-04-13] MEDS: NOREPINEPHRINE 4 MG/D5W 250 ML IV PRN ×2 (12:46→20:33)
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
[2017-04-13] MEDS: LINEZOLID 600 MG TAB PO SCH ×2 (15:48→19:41)
[2017-04-13] MEDS: LEVOFLOXACIN 750 MG PREMIX INJ 100 ML IV SCH (15:48)
[2017-04-14] VITALS (18 sets, daily range): BP systolic 96–142; BP diastolic 51–68; PULSE 67–96; RESP 22; TEMP 97.5–99.1; O2SAT 93–98
[2017-04-14] MEDS ORDERED: CISATRACURIUM 100 MG/NS 250 ML IV PRN ×2 (00:30)
[2017-04-14] MEDS: CHLORHEXIDINE GLUCONATE 2 % 1 PACK (2 CLOTHS) TOP SCH (02:28)
[2017-04-14] MEDS: MIDAZOLAM 100 MG/NS 100 ML DRIP Premix IV PRN ×3 (03:51→22:21)
[2017-04-14] MEDS: PROPOFOL 1000 MG/100 ML INJ 100 ML IV PRN ×3 (03:52→17:01)
[2017-04-14 05:19] LABS: BLOOD GAS BASE EXCESS 8.4 mmol/L (-2-2); BLOOD GAS CARBOXYHEMOGLOBIN 1.5 % (0-4); BLOOD GAS HCO3 35 mmol/L (22-26); BLOOD GAS METHEMOGLOBIN 0.8 % (0-2); BLOOD GAS O2 HGB SATURATION 94 % (90-100); BLOOD GAS OXYGEN CONTENT 11.1 Vol % (12.0-20.0); BLOOD GAS PCO2 71 mmHg (38-42); BLOOD GAS PO2 86 mmHg (61-120); BLOOD GAS TOTAL HGB 8.3 G/DL (12.0-16.0); TEMP CORR TO 98.6
[2017-04-14 05:20] LABS: CRITICAL VALUE YES; OXYGEN DEVICE VENTILATOR
[2017-04-14 05:21] LABS: DRAW SITE ART LINE; FIO2 60 %; STAT NO; VENT SETTINGS PRVC/AC
[2017-04-14] MEDS: METHOCARBAMOL 500 MG TAB PO SCH ×3 (05:34→21:14)
[2017-04-14] MEDS: HYDROMORPHONE IV SCH (06:55)
[2017-04-14] MEDS: SODIUM CHLORIDE 0.9% IV SCH (06:55)
[2017-04-14 07:25] LABS: AUTOMATED NEUTROPHIL # 10.8 TH/MM3 (1.8-7.7); BASOPHIL # 0.1 TH/MM3 (0-0.2); BASOPHIL % 0.4 % (0.0-2.0); EOSINOPHIL # 0.4 TH/MM3 (0-0.4); HEMATOCRIT 25.9 % (39.0-51.0); LYMPH % 10.2 % (9.0-44.0); LYMPHOCYTE # 1.4 TH/MM3 (1.0-4.8); MEAN CELL VOLUME 91.3 FL (80.0-100.0); MEAN CORPUSCULAR HEMOGLOBIN 29.6 PG (27.0-34.0); MEAN CORPUSCULAR HGB CONC 32.4 % (32.0-36.0); MONO % 6.3 % (0.0-8.0); NEUT % 80.1 % (16.0-70.0); PLATELET COUNT 428 TH/MM3 (150-450); RED BLOOD COUNT 2.83 MIL/MM3 (4.50-5.90); RED CELL DISTRIBUTION WIDTH 19.9 % (11.6-17.2); WHITE BLOOD COUNT 13.4 TH/MM3 (4.0-11.0)
[2017-04-14 07:30] LABS: HEMO FLAGS AUTO DIFF
[2017-04-14 07:43] LABS: ALT (GPT) 24 U/L (12-78); ANION GAP 4 MEQ/L (5-15); AST (GOT) 50 U/L (15-37); BICARBONATE 34.4 MEQ/L (21.0-32.0); BLOOD UREA NITROGEN 23 MG/DL (7-18); CHLORIDE 108 MEQ/L (98-107); GLOMERULAR FILTRATION RATE 224 ML/MIN (>89); POTASSIUM 3.9 MEQ/L (3.5-5.1); SODIUM (NA) 146 MEQ/L (136-145)
[2017-04-14 07:45] LABS: ALKALINE PHOSPHATASE 135 U/L (45-117); TOTAL BILIRUBIN ADULT 0.3 MG/DL (0.2-1.0)
[2017-04-14] MEDS: LACTULOSE SYRUP 20 GM/30 ML CUP PO SCH (07:50)
[2017-04-14] MEDS: BACITRACIN TOP OINT 15 GM TUBE TOPICAL SCH ×2 (07:50→19:46)
[2017-04-14] MEDS: CHLORHEXIDINE 0.12% (ORAL KIT) 15 ML CUP MT SCH ×2 (07:50→19:41)
[2017-04-14] MEDS: LINEZOLID 600 MG TAB PO SCH ×2 (08:07→19:39)
[2017-04-14] MEDS: FAMOTIDINE 20 MG TAB PO SCH ×2 (08:07→19:39)
[2017-04-14] MEDS: ENOXAPARIN SODIUM 30 MG/0.3 ML SYRINGE SQ SCH ×2 (08:07→19:40)
[2017-04-14] MEDS: REMOVE OLD PATCH T-DERMAL SCH (08:07)
[2017-04-14] MEDS: MAGNESIUM HYDROXIDE SUSP 30 ML CUP PO SCH ×2 (08:07→19:39)
[2017-04-14] MEDS: DOCUSATE SODIUM 50 MG/SENNA 8.6 MG TAB PO SCH ×2 (08:07→19:39)
[2017-04-14] MEDS: LIDOCAINE HCL 5% PATCH T-DERMAL SCH (08:08)
[2017-04-14] MEDS: SODIUM CHLORIDE 0.9% FLUSH 10 ML FLUSH IV FLUSH SCH ×2 (08:08→19:40)
[2017-04-14 08:24] LABS: BANDS 3 % (0-6); EOSINOPHILS 1 % (0-4); MYELOCYTES 2 % (0-0); NEUTROPHIL # MANUAL DIFF 12.5 TH/MM3 (1.8-7.7); PLATELET ESTIMATE SMEAR NORMAL (NORMAL); PLATELET MORPHOLOGY NORMAL (NORMAL); POLYS (SEG NEUTROPHILS) 88 % (16-70); SCAN/DIFF FINAL DIFF MANUAL; WBC DIFF SAMPLE 100
[2017-04-14] MEDS ORDERED: NOREPINEPHRINE INJ 4 MG in SODIUM CHLOR 0.9% 250 ML INJ 246 ML IV PRN (09:00)
[2017-04-14] MEDS: NOREPINEPHRINE INJ 4 MG in SODIUM CHLOR 0.9% 250 ML INJ 246 ML IV PRN (09:38)
[2017-04-14] MEDS ORDERED: SODIUM CHLOR 0.9% 250 ML INJ 250 ML IV ONE (10:00)
[2017-04-14] MEDS ORDERED: LACTATED RINGER'S 1000 ML INJ 1,000 ML IV ONE (10:00)
--- NOTE | 2017-04-14 10:56 | HHI.PR ---
Neuropsych Emotional Emotional: UnabletoAssess: Emotional, Anxious/Fearful, Depressed/Sad, Hostile/ Resentful, Irritable/Angry/Frustrate, Labile, Constricted/Blunted Behavior Behavior: Unable to Asses: Behavior, Coping/Acceptance, Cooperative w/ Treatment, Motivation, Frustration Tolerance/[place], Impulsive/Agitated, Suicidal/ Homicidal Risk Cognitive Cognitive: Unable to Asses: Cognitive, Attention/Concentration, Confused/ Orientation, Insight/Awareness, Judgement/Problem-Solving, Memory Psychosocial Psychosocial: Severe: Psychosocial, Family/Other Adjustment, Realistic Expectation, Unable to Asses: Self-Esteem/Confidence Progress Notes/Response to Tx Contents of Sessions: Adjustment Time with Patient: 15 minutes Premorbid psychological status Premorbid Cognitive, Emotional and Behavioral Status: Unable to Assess. The patient's educational and occupational histories are not able to be determined. Substance abuse history is documented. Behavioral Reactions of Patient and Family/Support System: Unable to Assess. The patients family is experiencing ongoing issues of adjustment given the nature of the injury, and this aspect of recovery will require ongoing monitoring. Emotional/Behavioral Status of Patient and Family/Support System: Unable to Assess. Pertinent issues, if appropriate to this patients clinical care, are described in detail above. Maximizing acute care outcome It is recommended that the patient be monitored for emergent behavioral impulsivity as the medical condition evolves. This patients polysubstance dependence challenges may limit their rehabilitation potential going forward, and these challenges will require specialized therapeutic skills to maximize outcome. Anticipated Problems Ongoing areas of concern will include behavioral impulsivity, lack of insight and judgment, which may or many not improve with time and treatment. Treatment Plan This clinician will continue to follow with you throughout the course of this patients acute care treatment, and I will be available to meet with the patient s family/support system to facilitate their understanding and the ongoing care of their family member. The goals of neuropsychological intervention shall be both educational and supportive to the family/support system as is deemed clinically appropriate. Impression 36 year old male s/p multi trauma with history of polysubstance dependence. Diagnosis: (1) Polysubstance dependence in controlled environment Progress Note Narrative Ongoing follow-up of patient seen during daily trauma rounds. This patient remains intubated and sedated. There are no new neurobehavioral issues. I will continue to follow. Ulysses Bucio PhD Apr 14, 2017 10:56
[2017-04-14] MEDS: FREE WATER G-TUBE SCH ×3 (12:00→23:58)
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
[2017-04-14 16:45] LABS: STAT NO
[2017-04-14] MEDS: LEVOFLOXACIN 750 MG PREMIX INJ 100 ML IV SCH (17:00)
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
[2017-04-15] VITALS (16 sets, daily range): BP systolic 102–143; BP diastolic 45–66; PULSE 81–101; RESP 22–24; TEMP 98.3–101.3; O2SAT 90–97
--- NOTE | 2017-04-15 03:17 | RADRPT ---
EXAM DATE/TIME: 04/15/2017 02:12 [facility] COMPARISON: CHEST SINGLE AP, April 13, 2017, 8:54. INDICATIONS : Evaluate for pneumothorax MEDICAL HISTORY : None. SURGICAL HISTORY : None. ENCOUNTER: Subsequent ACUITY: 2 weeks PAIN SCORE: Non-responsive. LOCATION: Bilateral chest FINDINGS: A single view of the chest demonstrates bilateral chest tubes without significant pneumothorax. Right central line in superior vena cava. Endotracheal tube in good position. Nasogastric tube enters stom ach. Bilateral airspace consolidation similar to April 13. CONCLUSION: 1. Bilateral chest tubes without pneumothorax. Support apparatus unchanged. Diffuse bilateral airspac e disease remains. Multiple rib fractures. Raheel West MD on April 15, 2017 at 3:15 Board Certified Radiologist. This report was verified electronically.
[2017-04-15] MEDS: CHLORHEXIDINE GLUCONATE 2 % 1 PACK (2 CLOTHS) TOP SCH (03:25)
[2017-04-15] MEDS: FREE WATER G-TUBE SCH ×3 (05:16→17:58)
[2017-04-15] MEDS: METHOCARBAMOL 500 MG TAB PO SCH ×3 (05:16→20:30)
[2017-04-15 05:29] LABS: AUTOMATED NEUTROPHIL # 11.2 TH/MM3 (1.8-7.7); BASOPHIL % 0.3 % (0.0-2.0); EOSINOPHIL # 0.3 TH/MM3 (0-0.4); HEMATOCRIT 27.1 % (39.0-51.0); LYMPH % 9.2 % (9.0-44.0); LYMPHOCYTE # 1.3 TH/MM3 (1.0-4.8); MEAN CELL VOLUME 90.7 FL (80.0-100.0); MEAN CORPUSCULAR HGB CONC 33.1 % (32.0-36.0); MONO % 7.7 % (0.0-8.0); NEUT % 80.8 % (16.0-70.0); PLATELET COUNT 474 TH/MM3 (150-450); RED BLOOD COUNT 2.99 MIL/MM3 (4.50-5.90); RED CELL DISTRIBUTION WIDTH 19.9 % (11.6-17.2); WHITE BLOOD COUNT 13.8 TH/MM3 (4.0-11.0)
[2017-04-15 05:32] LABS: HEMO FLAGS AUTO DIFF
[2017-04-15 05:36] LABS: BLOOD GAS BASE EXCESS 11.2 mmol/L (-2-2); BLOOD GAS CARBOXYHEMOGLOBIN 1.5 % (0-4); BLOOD GAS HCO3 37 mmol/L (22-26); BLOOD GAS METHEMOGLOBIN 0.9 % (0-2); BLOOD GAS O2 HGB SATURATION 90 % (90-100); BLOOD GAS OXYGEN CONTENT 13.3 Vol % (12.0-20.0); BLOOD GAS PCO2 70 mmHg (38-42); BLOOD GAS PO2 68 mmHg (61-120); BLOOD GAS TOTAL HGB 10.5 G/DL (12.0-16.0); TEMP CORR TO 98.6
[2017-04-15 05:38] LABS: CRITICAL VALUE YES; OXYGEN DEVICE VENTILATOR
[2017-04-15 05:39] LABS: VENT SETTINGS PRVC
[2017-04-15 05:40] LABS: DRAW SITE ART LINE; FIO2 70 %; STAT NO
[2017-04-15 06:48] LABS: BANDS 25 % (0-6); METAMYELOCYTES 2 % (0-1); NEUTROPHIL # MANUAL DIFF 13.4 TH/MM3 (1.8-7.7); POLYS (SEG NEUTROPHILS) 70 % (16-70); WBC DIFF SAMPLE 100
[2017-04-15 06:50] LABS: PLATELET ESTIMATE SMEAR HIGH (NORMAL); PLATELET MORPHOLOGY NORMAL (NORMAL)
[2017-04-15 06:51] LABS: SCAN/DIFF FINAL DIFF MANUAL
[2017-04-15] MEDS: SODIUM CHLORIDE 0.9% IV SCH (07:15)
[2017-04-15] MEDS: HYDROMORPHONE IV SCH (07:15)
[2017-04-15] MEDS: CHLORHEXIDINE 0.12% (ORAL KIT) 15 ML CUP MT SCH ×2 (07:26→20:30)
[2017-04-15] MEDS: SODIUM CHLORIDE 0.9% FLUSH 10 ML FLUSH IV FLUSH SCH ×2 (07:26→20:30)
[2017-04-15] MEDS: BACITRACIN TOP OINT 15 GM TUBE TOPICAL SCH ×2 (07:27→20:31)
[2017-04-15] MEDS: MAGNESIUM HYDROXIDE SUSP 30 ML CUP PO SCH ×2 (07:55→20:30)
[2017-04-15] MEDS: MIDAZOLAM 100 MG/NS 100 ML DRIP Premix IV PRN ×2 (07:56→15:45)
[2017-04-15] MEDS: ENOXAPARIN SODIUM 30 MG/0.3 ML SYRINGE SQ SCH ×2 (07:56→20:30)
[2017-04-15] MEDS: LINEZOLID 600 MG TAB PO SCH ×2 (07:56→20:30)
[2017-04-15] MEDS: DOCUSATE SODIUM 50 MG/SENNA 8.6 MG TAB PO SCH ×2 (07:56→20:30)
[2017-04-15] MEDS: FAMOTIDINE 20 MG TAB PO SCH ×2 (07:56→20:30)
[2017-04-15] MEDS: LACTULOSE SYRUP 20 GM/30 ML CUP PO SCH (07:56)
[2017-04-15] MEDS: LIDOCAINE HCL 5% PATCH T-DERMAL SCH (07:57)
[2017-04-15] MEDS: REMOVE OLD PATCH T-DERMAL SCH (07:57)
[2017-04-15 08:06] LABS: ALKALINE PHOSPHATASE 130 U/L (45-117); ALT (GPT) 20 U/L (12-78); ANION GAP 5 MEQ/L (5-15); AST (GOT) 47 U/L (15-37); BICARBONATE 35.1 MEQ/L (21.0-32.0); BLOOD UREA NITROGEN 17 MG/DL (7-18); CHLORIDE 104 MEQ/L (98-107); GLOMERULAR FILTRATION RATE 363 ML/MIN (>89); POTASSIUM 3.5 MEQ/L (3.5-5.1); SODIUM (NA) 144 MEQ/L (136-145); TOTAL BILIRUBIN ADULT 0.2 MG/DL (0.2-1.0)
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
[2017-04-15] MEDS: PROPOFOL 1000 MG/100 ML INJ 100 ML IV PRN ×2 (12:04→18:24)
[2017-04-15] MEDS: NOREPINEPHRINE INJ 4 MG in SODIUM CHLOR 0.9% 250 ML INJ 246 ML IV PRN (12:04)
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
[2017-04-15] MEDS: LEVOFLOXACIN 750 MG PREMIX INJ 100 ML IV SCH (15:45)
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
[2017-04-15] MEDS: SODIUM CHLOR 0.9% 1000 ML INJ 1,000 ML IV SCH (16:00)
[2017-04-15 16:34] LABS: BLOOD GAS BASE EXCESS 10.8 mmol/L (-2-2); BLOOD GAS CARBOXYHEMOGLOBIN 1.2 % (0-4); BLOOD GAS HCO3 37 mmol/L (22-26); BLOOD GAS METHEMOGLOBIN 0.6 % (0-2); BLOOD GAS O2 HGB SATURATION 90 % (90-100); BLOOD GAS OXYGEN CONTENT 12.6 Vol % (12.0-20.0); BLOOD GAS PCO2 72 mmHg (38-42); BLOOD GAS PO2 66 mmHG (61-120); BLOOD GAS TOTAL HGB 9.9 G/DL (12.0-16.0); TEMP CORR TO 98.6
[2017-04-15 16:35] LABS: CRITICAL VALUE YES; DRAW SITE ART LINE; FIO2 100 %; OXYGEN DEVICE VENTILATOR; STAT YES; VENT SETTINGS PRVC/R22/VT550/P16
[2017-04-15] MEDS: ACETAMINOPHEN 325 MG TAB PO PRN (18:16)
[2017-04-15] MEDS ORDERED: IBUPROFEN SUSP 100 MG/5 ML UDC OG-TUBE ONE (21:30)
[2017-04-16] VITALS (19 sets, daily range): BP systolic 86–146; BP diastolic 44–74; PULSE 80–99; RESP 24; TEMP 98.7–101.2; O2SAT 19–100
[2017-04-16] MEDS: MIDAZOLAM 100 MG/NS 100 ML DRIP Premix IV PRN ×3 (01:40→21:34)
[2017-04-16] MEDS: PROPOFOL 1000 MG/100 ML INJ 100 ML IV PRN ×3 (01:40→14:20)
[2017-04-16] MEDS: CHLORHEXIDINE GLUCONATE 2 % 1 PACK (2 CLOTHS) TOP SCH (04:00)
[2017-04-16 04:59] LABS: BLOOD GAS BASE EXCESS 14.5 mmol/L (-2-2); BLOOD GAS CARBOXYHEMOGLOBIN 1.4 % (0-4); BLOOD GAS HCO3 39 mmol/L (22-26); BLOOD GAS METHEMOGLOBIN 1.2 % (0-2); BLOOD GAS O2 HGB SATURATION 96 % (90-100); BLOOD GAS OXYGEN CONTENT 11.7 Vol % (12.0-20.0); BLOOD GAS PCO2 50 mmHg (38-42); BLOOD GAS PO2 116 mmHg (61-120); BLOOD GAS TOTAL HGB 8.5 G/DL (12.0-16.0); CRITICAL VALUE NO; DRAW SITE LT RADIAL; FIO2 100 %; NUMBER OF ARTERIAL PUNCTURES 1; OXYGEN DEVICE VENTILATOR; STAT NO; TEMP CORR TO 98.6; ULNAR PULSE PRESENT
[2017-04-16] MEDS: FREE WATER G-TUBE SCH ×5 (06:00→23:59)
[2017-04-16] MEDS: METHOCARBAMOL 500 MG TAB PO SCH ×3 (06:00→21:16)
[2017-04-16 06:22] LABS: AUTOMATED NEUTROPHIL # 11.7 TH/MM3 (1.8-7.7); BASOPHIL # 0.1 TH/MM3 (0-0.2); BASOPHIL % 0.8 % (0.0-2.0); EOSINOPHIL # 0.2 TH/MM3 (0-0.4); EOSINOPHIL % 1.7 % (0.0-4.0); HEMATOCRIT 26.6 % (39.0-51.0); LYMPH % 9.8 % (9.0-44.0); LYMPHOCYTE # 1.5 TH/MM3 (1.0-4.8); MEAN CELL VOLUME 90.3 FL (80.0-100.0); MEAN CORPUSCULAR HEMOGLOBIN 30.1 PG (27.0-34.0); MEAN CORPUSCULAR HGB CONC 33.3 % (32.0-36.0); MONO % 8.7 % (0.0-8.0); PLATELET COUNT 565 TH/MM3 (150-450); RED BLOOD COUNT 2.94 MIL/MM3 (4.50-5.90); RED CELL DISTRIBUTION WIDTH 19.3 % (11.6-17.2); WHITE BLOOD COUNT 14.8 TH/MM3 (4.0-11.0)
--- NOTE | 2017-04-16 06:22 | RADRPT ---
EXAM DATE/TIME: 04/16/2017 04:38 [facility] COMPARISON: CHEST SINGLE AP, April 15, 2017, 2:12. INDICATIONS : ARDS, Respiratory failure MEDICAL HISTORY : None. SURGICAL HISTORY : None. ENCOUNTER: Subsequent ACUITY: 2 weeks PAIN SCORE: Non-responsive. LOCATION: Bilateral chest FINDINGS: Bilateral chest tubes are present. A significant pneumothorax is not seen. ET tube, NG tube, and righ t subclavian line appear well placed. The heart size is normal. There is bilateral diffuse airspace d isease being worse on the right. Right rib fractures are seen. CONCLUSION: 1. Tubes and lines in good position. 2. Diffuse airspace disease. ARDS could have this appearance. 3. Bilateral chest tubes without significant pneumothorax. Jose Bejarano MD on April 16, 2017 at 6:18 Board Certified Radiologist. This report was verified electronically.
[2017-04-16 06:30] LABS: HEMO FLAGS AUTO DIFF
[2017-04-16 06:37] LABS: ANION GAP 3 MEQ/L (5-15); AST (GOT) 49 U/L (15-37); BICARBONATE 39.2 MEQ/L (21.0-32.0); BLOOD UREA NITROGEN 17 MG/DL (7-18); CHLORIDE 104 MEQ/L (98-107); GLOMERULAR FILTRATION RATE 231 ML/MIN (>89); POTASSIUM 4.6 MEQ/L (3.5-5.1); SODIUM (NA) 146 MEQ/L (136-145)
[2017-04-16 06:38] LABS: ALT (GPT) 23 U/L (12-78)
[2017-04-16 06:40] LABS: ALKALINE PHOSPHATASE 128 U/L (45-117); TOTAL BILIRUBIN ADULT 0.3 MG/DL (0.2-1.0)
[2017-04-16 08:35] LABS: BANDS 18 % (0-6); EOSINOPHILS 2 % (0-4); MYELOCYTES 5 % (0-0); NEUTROPHIL # MANUAL DIFF 12.4 TH/MM3 (1.8-7.7); POLYS (SEG NEUTROPHILS) 60 % (16-70); PROMYELOCYTES 1 % (0-0); WBC DIFF SAMPLE 100
[2017-04-16 08:36] LABS: PLATELET ESTIMATE SMEAR HIGH (NORMAL); PLATELET MORPHOLOGY NORMAL (NORMAL); POLYCHROMASIA 2.3 % (0.0-1.9); SCAN/DIFF FINAL DIFF MANUAL
[2017-04-16] MEDS: CHLORHEXIDINE 0.12% (ORAL KIT) 15 ML CUP MT SCH ×2 (08:45→19:51)
[2017-04-16] MEDS: MAGNESIUM HYDROXIDE SUSP 30 ML CUP PO SCH ×2 (08:45→19:51)
[2017-04-16] MEDS: SODIUM CHLORIDE 0.9% IV SCH (08:49)
[2017-04-16] MEDS: HYDROMORPHONE IV SCH (08:49)
[2017-04-16] MEDS: NOREPINEPHRINE INJ 4 MG in SODIUM CHLOR 0.9% 250 ML INJ 246 ML IV PRN ×3 (08:50→21:33)
[2017-04-16] MEDS: LACTULOSE SYRUP 20 GM/30 ML CUP PO SCH (08:57)
[2017-04-16] MEDS: SODIUM CHLORIDE 0.9% FLUSH 10 ML FLUSH IV FLUSH SCH ×2 (08:57→19:50)
[2017-04-16] MEDS: DOCUSATE SODIUM 50 MG/SENNA 8.6 MG TAB PO SCH ×2 (08:58→19:50)
[2017-04-16] MEDS: BACITRACIN TOP OINT 15 GM TUBE TOPICAL SCH ×2 (09:00→19:51)
[2017-04-16] MEDS: REMOVE OLD PATCH T-DERMAL SCH (09:00)
[2017-04-16] MEDS: FAMOTIDINE 20 MG TAB PO SCH ×2 (09:29→19:50)
[2017-04-16] MEDS: LINEZOLID 600 MG TAB PO SCH ×2 (09:29→19:50)
[2017-04-16] MEDS: LIDOCAINE HCL 5% PATCH T-DERMAL SCH (09:30)
[2017-04-16] MEDS: ENOXAPARIN SODIUM 30 MG/0.3 ML SYRINGE SQ SCH ×2 (09:30→19:50)
[2017-04-16] MEDS ORDERED: ALBUMIN 5% INJ 500 ML IV ONE (09:30)
[2017-04-16] MEDS: ACETAMINOPHEN 325 MG TAB PO PRN (11:16)
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
[2017-04-16] MEDS: SODIUM CHLOR 0.9% 1000 ML INJ 1,000 ML IV SCH (14:10)
[2017-04-16] MEDS: LEVOFLOXACIN 750 MG PREMIX INJ 100 ML IV SCH (15:51)
[2017-04-16] MEDS: RESP: ALBUTEROL 2.5 MG/IPRATROPIUM 0.5 MG NEB (PRN) NEB (21:33)
[2017-04-17] VITALS (16 sets, daily range): BP systolic 96–132; BP diastolic 51–58; PULSE 93–110; RESP 24; TEMP 98–100.2; O2SAT 81–100
[2017-04-17 02:09] LABS: BLOOD GAS BASE EXCESS 13.2 mmol/L (-2-2); BLOOD GAS CARBOXYHEMOGLOBIN 1.7 % (0-4); BLOOD GAS HCO3 39 mmol/L (22-26); BLOOD GAS METHEMOGLOBIN 0.9 % (0-2); BLOOD GAS O2 HGB SATURATION 81 % (90-100); BLOOD GAS OXYGEN CONTENT 9.9 Vol % (12.0-20.0); BLOOD GAS PCO2 70 mmHg (38-42); BLOOD GAS PO2 52 mmHg (61-120); BLOOD GAS TOTAL HGB 8.6 G/DL (12.0-16.0); TEMP CORR TO 98.6
[2017-04-17 02:10] LABS: CRITICAL VALUE YES; DRAW SITE ART LINE; FIO2 100 %; OXYGEN DEVICE VENTILATOR; STAT NO; VENT SETTINGS PRVC/AC
[2017-04-17] MEDS ORDERED: CISATRACURIUM BESYLATE 20 MG/10 ML VIAL IV PUSH ONE (02:15)
[2017-04-17] MEDS: RESP: ALBUTEROL 2.5 MG/IPRATROPIUM 0.5 MG NEB (PRN) NEB (03:24)
[2017-04-17] MEDS: CHLORHEXIDINE GLUCONATE 2 % 1 PACK (2 CLOTHS) TOP SCH ×2 (04:00→20:27)
[2017-04-17] MEDS: NOREPINEPHRINE INJ 4 MG in SODIUM CHLOR 0.9% 250 ML INJ 246 ML IV PRN ×2 (04:01→13:14)
[2017-04-17] MEDS: PROPOFOL 1000 MG/100 ML INJ 100 ML IV PRN ×6 (04:01→21:51)
[2017-04-17 04:13] LABS: AUTOMATED NEUTROPHIL # 15.9 TH/MM3 (1.8-7.7); BASOPHIL # 0.1 TH/MM3 (0-0.2); BASOPHIL % 0.5 % (0.0-2.0); EOSINOPHIL # 0.3 TH/MM3 (0-0.4); EOSINOPHIL % 1.5 % (0.0-4.0); HEMATOCRIT 26.9 % (39.0-51.0); LYMPH % 5.6 % (9.0-44.0); MEAN CELL VOLUME 90.4 FL (80.0-100.0); MEAN CORPUSCULAR HEMOGLOBIN 28.9 PG (27.0-34.0); MONO % 6.9 % (0.0-8.0); NEUT % 85.5 % (16.0-70.0); PLATELET COUNT 625 TH/MM3 (150-450); RED BLOOD COUNT 2.98 MIL/MM3 (4.50-5.90); RED CELL DISTRIBUTION WIDTH 19.7 % (11.6-17.2); WHITE BLOOD COUNT 18.6 TH/MM3 (4.0-11.0)
[2017-04-17 04:24] LABS: BICARBONATE 39.8 MEQ/L (21.0-32.0); POTASSIUM 4.2 MEQ/L (3.5-5.1)
[2017-04-17 04:43] LABS: HEMO FLAGS AUTO DIFF
[2017-04-17] MEDS: FREE WATER G-TUBE SCH ×3 (05:02→17:56)
[2017-04-17] MEDS: METHOCARBAMOL 500 MG TAB PO SCH ×3 (05:03→20:26)
[2017-04-17 05:16] LABS: BANDS 2 % (0-6); EOSINOPHILS 4 % (0-4); METAMYELOCYTES 1 % (0-1); NEUTROPHIL # MANUAL DIFF 16.9 TH/MM3 (1.8-7.7); POLYS (SEG NEUTROPHILS) 88 % (16-70); WBC DIFF SAMPLE 100
[2017-04-17 05:17] LABS: PLATELET ESTIMATE SMEAR HIGH (NORMAL); PLATELET MORPHOLOGY NORMAL (NORMAL); SCAN/DIFF FINAL DIFF MANUAL; STOMATOCYTES 1+ (NORMAL)
[2017-04-17] MEDS: MIDAZOLAM 100 MG/NS 100 ML DRIP Premix IV PRN ×2 (06:13→15:46)
[2017-04-17] MEDS: HYDROMORPHONE IV SCH (07:53)
[2017-04-17] MEDS: SODIUM CHLORIDE 0.9% IV SCH (07:53)
[2017-04-17] MEDS: CHLORHEXIDINE 0.12% (ORAL KIT) 15 ML CUP MT SCH ×2 (07:53→20:25)
[2017-04-17] MEDS: FAMOTIDINE 20 MG TAB PO SCH ×2 (08:23→20:26)
[2017-04-17] MEDS: LINEZOLID 600 MG TAB PO SCH ×2 (08:23→20:26)
[2017-04-17] MEDS: DOCUSATE SODIUM 50 MG/SENNA 8.6 MG TAB PO SCH ×2 (08:23→20:26)
[2017-04-17] MEDS: ENOXAPARIN SODIUM 30 MG/0.3 ML SYRINGE SQ SCH ×2 (08:23→20:26)
[2017-04-17] MEDS: MAGNESIUM HYDROXIDE SUSP 30 ML CUP PO SCH ×2 (08:45→20:26)
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
[2017-04-17] MEDS: LIDOCAINE HCL 5% PATCH T-DERMAL SCH (09:00)
[2017-04-17] MEDS: LACTULOSE SYRUP 20 GM/30 ML CUP PO SCH (09:00)
[2017-04-17] MEDS: BACITRACIN TOP OINT 15 GM TUBE TOPICAL SCH ×2 (09:00→20:26)
[2017-04-17] MEDS: REMOVE OLD PATCH T-DERMAL SCH (09:00)
[2017-04-17] MEDS: SODIUM CHLORIDE 0.9% FLUSH 10 ML FLUSH IV FLUSH SCH ×2 (09:00→20:26)
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
[2017-04-17] MEDS: LEVOFLOXACIN 750 MG PREMIX INJ 100 ML IV SCH (16:54)
[2017-04-17] MEDS: PIPERACIL-TAZO 4.5 GM PREMIX 100 ML IV SCH ×2 (17:56→21:51)
[2017-04-18] VITALS (9 sets, daily range): BP systolic 89–113; BP diastolic 49–62; PULSE 96–105; RESP 24; TEMP 97.2–98.2; O2SAT 52–85
[2017-04-18] MEDS: FREE WATER G-TUBE SCH ×3 (00:08→12:00)
[2017-04-18] MEDS ORDERED: EPOPROSTENOL NEB SOLUTION 50 NG/KG/MIN 100 ML NEB SCH ×2 (03:00)
[2017-04-18] MEDS: PIPERACIL-TAZO 4.5 GM PREMIX 100 ML IV SCH ×2 (04:38→11:00)
[2017-04-18] MEDS: METHOCARBAMOL 500 MG TAB PO SCH ×2 (04:39→14:00)
[2017-04-18] MEDS: PROPOFOL 1000 MG/100 ML INJ 100 ML IV PRN ×3 (04:39→12:01)
[2017-04-18] MEDS: NOREPINEPHRINE INJ 4 MG in SODIUM CHLOR 0.9% 250 ML INJ 246 ML IV PRN (04:40)
[2017-04-18 05:14] LABS: BLOOD GAS BASE EXCESS 12.3 mmol/L (-2-2); BLOOD GAS CARBOXYHEMOGLOBIN 1.8 % (0-4); BLOOD GAS HCO3 39 mmol/L (22-26); BLOOD GAS O2 HGB SATURATION 78 % (90-100); BLOOD GAS OXYGEN CONTENT 9.2 Vol % (12.0-20.0); BLOOD GAS PCO2 87 mmHg (38-42); BLOOD GAS PO2 50 mmHg (61-120); BLOOD GAS TOTAL HGB 8.3 G/DL (12.0-16.0); TEMP CORR TO 98.6
[2017-04-18 05:15] LABS: CRITICAL VALUE YES; DRAW SITE ART LINE; FIO2 100 %; OXYGEN DEVICE VENTILATOR; STAT NO; VENT SETTINGS 24/550/IT0.8/16PEEP
[2017-04-18 05:20] LABS: AUTOMATED NEUTROPHIL # 15.1 TH/MM3 (1.8-7.7); BASOPHIL % 0.2 % (0.0-2.0); EOSINOPHIL # 0.4 TH/MM3 (0-0.4); HEMATOCRIT 25.5 % (39.0-51.0); LYMPH % 6.2 % (9.0-44.0); LYMPHOCYTE # 1.1 TH/MM3 (1.0-4.8); MEAN CELL VOLUME 92.2 FL (80.0-100.0); MEAN CORPUSCULAR HEMOGLOBIN 30.5 PG (27.0-34.0); MEAN CORPUSCULAR HGB CONC 33.1 % (32.0-36.0); MONO % 8.7 % (0.0-8.0); NEUT % 82.9 % (16.0-70.0); PLATELET COUNT 493 TH/MM3 (150-450); RED BLOOD COUNT 2.76 MIL/MM3 (4.50-5.90); WHITE BLOOD COUNT 18.2 TH/MM3 (4.0-11.0)
[2017-04-18 05:41] LABS: BICARBONATE 40.6 MEQ/L (21.0-32.0); POTASSIUM 4.6 MEQ/L (3.5-5.1)
[2017-04-18 05:44] LABS: HEMO FLAGS AUTO DIFF
[2017-04-18 06:47] LABS: BANDS 5 % (0-6); BASOPHILS 1 % (0-2); CORRECTED NUCLEATED RBC 1 /100 WBC (0-0); EOSINOPHILS 1 % (0-4); MYELOCYTES 1 % (0-0); NEUTROPHIL # MANUAL DIFF 15.7 TH/MM3 (1.8-7.7); PLATELET ESTIMATE SMEAR HIGH (NORMAL); PLATELET MORPHOLOGY NORMAL (NORMAL); POLYS (SEG NEUTROPHILS) 80 % (16-70); SCAN/DIFF FINAL DIFF MANUAL; WBC DIFF SAMPLE 100
[2017-04-18] MEDS: CHLORHEXIDINE 0.12% (ORAL KIT) 15 ML CUP MT SCH (08:00)
[2017-04-18] MEDS: MAGNESIUM HYDROXIDE SUSP 30 ML CUP PO SCH (08:21)
[2017-04-18] MEDS: LACTULOSE SYRUP 20 GM/30 ML CUP PO SCH (08:21)
[2017-04-18] MEDS: LIDOCAINE HCL 5% PATCH T-DERMAL SCH (08:22)
[2017-04-18] MEDS: DOCUSATE SODIUM 50 MG/SENNA 8.6 MG TAB PO SCH (08:22)
[2017-04-18] MEDS: LINEZOLID 600 MG TAB PO SCH (08:22)
[2017-04-18] MEDS: ENOXAPARIN SODIUM 30 MG/0.3 ML SYRINGE SQ SCH (08:22)
[2017-04-18] MEDS: FAMOTIDINE 20 MG TAB PO SCH (08:23)
[2017-04-18] MEDS: SODIUM CHLORIDE 0.9% FLUSH 10 ML FLUSH IV FLUSH SCH (08:23)
[2017-04-18] MEDS: REMOVE OLD PATCH T-DERMAL SCH (08:23)
[2017-04-18] MEDS: BACITRACIN TOP OINT 15 GM TUBE TOPICAL SCH (08:23)
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
[2017-04-18] MEDS: MIDAZOLAM 100 MG/NS 100 ML DRIP Premix IV PRN (09:51)
[2017-04-18] MEDS: HYDROMORPHONE IV SCH (10:00)
[2017-04-18] MEDS: SODIUM CHLORIDE 0.9% IV SCH (10:00)
--- NOTE | 2017-04-18 10:51 | RADRPT ---
EXAM DATE/TIME: 04/18/2017 09:53 [facility] COMPARISON: CHEST SINGLE AP, April 16, 2017, 4:38. INDICATIONS : Acute respiratory distress syndrome. MEDICAL HISTORY : None. SURGICAL HISTORY : Chest tube, bilateral. ENCOUNTER: Subsequent ACUITY: 1 day PAIN SCORE: Non-responsive. LOCATION: Bilateral chest FINDINGS: 2 portable frontal views of the chest shows diffuse bilateral pulmonary infiltrates which have progre ssed from the prior exam. Progression is most pronounced within the upper lobes. Small effusions are noted. Bilateral thoracostomy tubes without pneumothorax. Right subclavian central line and nasogastr ic tube. Tip of the endotracheal tube 4 cm from the rani. CONCLUSION: Progression in the diffuse bilateral pulmonary infiltrates. Follow pleural effusions. Kobe Parks Jr., MD on April 18, 2017 at 10:43 Board Certified Radiologist. This report was verified electronically.
--- NOTE | 2017-04-18 12:24 | PD.CONS ---
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 decision-making to Amy and Neema. * GOALS: Thank you for the opportunity to participate in the care of Mr. Landers. Dunia Hou MD Apr 18, 2017 12:24
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
--- NOTE | 2017-04-18 15:57 | HHI.IDPN ---
Note Infectious Disease Note D/W RN Patient continues to deteriorate High FiO2 requiremen Has new infection Family withdrawing care this afternoon Mignon Ferguson MD, MD Apr 18, 2017 15:57
[2017-04-18] MEDS ORDERED: HYDROmorphone HCL PF 2 MG/ML VIAL IV PUSH PRN ×2 (16:00)
[2017-04-18] MEDS ORDERED: LORazepam 2 MG/ML VIAL IV PUSH ONE ×2 (16:00→16:15)
[2017-04-18] MEDS ORDERED: HYDROmorphone HCL PF 2 MG/ML VIAL IV PUSH ONE ×2 (16:00→16:15)
[2017-04-18] MEDS ORDERED: HYOSCYAMINE 0.5 MG/ML AMP IV PUSH ONE (16:00)
[2017-04-18] MEDS ORDERED: FUROSEMIDE 20 MG/2 ML VIAL IV PUSH PRN (16:30)
[2017-04-18] MEDS ORDERED: HYOSCYAMINE 0.5 MG/ML AMP IV PUSH PRN (16:30)
[2017-04-18] MEDS ORDERED: LORazepam 2 MG/ML VIAL IV PUSH PRN ×3 (16:30)
[2017-04-18] MEDS ORDERED: ACETAMINOPHEN 650 MG SUPP RECTAL PRN (16:30)
[2017-04-18] MEDS ORDERED: BISACODYL 10 MG SUPP RECTAL PRN (16:30)
[2017-04-18] MEDS ORDERED: PROPOFOL 1000 MG/100 ML INJ 100 ML IV PRN (17:00)
[2017-04-18] MEDS ORDERED: fentaNYL DRIP 250 ML IV PRN (17:00)
[2017-04-18] MEDS ORDERED: NOREPINEPHRINE-DEXTROSE DRIP 250 ML IV PRN (17:00)
[2017-04-18] MEDS ORDERED: SODIUM CHLOR 0.9% 1000 ML INJ 1,000 ML IV SCH (17:00)
[2017-04-18] MEDS ORDERED: SODIUM CHLOR 0.9% 1000 ML INJ 1,000 ML IV ONE (17:00)
[2017-04-18] MEDS ORDERED: MIDAZOLAM 100 MG/100 ML INJ 100 ML IV PRN (17:00)
[2017-04-18] MEDS ORDERED: TERBUTALINE INJ 1 MG/ML AMP SQ PRN (17:00)
[2017-04-18] MEDS ORDERED: LORazepam 2 MG/ML VIAL IV PUSH SCH (20:00)
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
== END 2017-04-18 21:29 | disposition expired | DRG 957 ==
LOC: NEPI 07:34 → NEDA 08:23 → MERGE 08:23 → EDBD 08:23 → N03A 09:40
PROVIDERS: ADMIT Surgery Trauma Surgery; ATTEND Surgery Trauma Surgery
PROC: 5A1945Z Respiratory Ventilation, 24-96 Consecutive Hours (ICD-10-PCS; principal; 2017-04-01)
PROC: 0BH17EZ Insertion of Endotracheal Airway into Trachea, Via Natural or Artificial Opening (ICD-10-PCS; 2017-04-01)
PROC: 0W9B30Z Drainage of Left Pleural Cavity with Drainage Device, Percutaneous Approach (ICD-10-PCS; 2017-04-01)
PROC: 0W9930Z Drainage of Right Pleural Cavity with Drainage Device, Percutaneous Approach (ICD-10-PCS; 2017-04-01)
PROC: 0HQ1XZZ Repair Face Skin, External Approach (ICD-10-PCS; 2017-04-01)
PROC: 0D9670Z Drainage of Stomach with Drainage Device, Via Natural or Artificial Opening (ICD-10-PCS; 2017-04-01)
PROC: 0QS504Z Reposition Left Acetabulum with Internal Fixation Device, Open Approach (ICD-10-PCS; 2017-04-04)
PROC: 0QS Lower Bones, Reposition (ICD-10-PCS; 2017-04-04)
PROC: 30233N1 Transfusion of Nonautologous Red Blood Cells into Peripheral Vein, Percutaneous Approach (ICD-10-PCS; 2017-04-04)
PROC: 5A09357 Assistance with Respiratory Ventilation, Less than 24 Consecutive Hours, Continuous Positive Airway Pressure (ICD-10-PCS; 2017-04-08)
PROC: 03HY32Z Insertion of Monitoring Device into Upper Artery, Percutaneous Approach (ICD-10-PCS; 2017-04-09)
PROC: 5A1955Z Respiratory Ventilation, Greater than 96 Consecutive Hours (ICD-10-PCS; 2017-04-09)
PROC: 0T9B70Z Drainage of Bladder with Drainage Device, Via Natural or Artificial Opening (ICD-10-PCS; 2017-04-09)
PROC: 05H533Z Insertion of Infusion Device into Right Subclavian Vein, Percutaneous Approach (ICD-10-PCS; 2017-04-09)
PROC: 4A133B1 Monitoring of Arterial Pressure, Peripheral, Percutaneous Approach (ICD-10-PCS; 2017-04-09)
PROC: 4A133J1 Monitoring of Arterial Pulse, Peripheral, Percutaneous Approach (ICD-10-PCS; 2017-04-09)
PROC: 0BH17EZ Insertion of Endotracheal Airway into Trachea, Via Natural or Artificial Opening (ICD-10-PCS; 2017-04-09)
DX: S32.402A Unspecified fracture of left acetabulum, initial encounter for closed fracture (principal); J96.01 Acute respiratory failure with hypoxia; S27.322A Contusion of lung, bilateral, initial encounter; S22.43XA Multiple fractures of ribs, bilateral, initial encounter for closed fracture; J18.9 Pneumonia, unspecified organism; E87.4 Mixed disorder of acid-base balance; S22.048A Other fracture of fourth thoracic vertebra, initial encounter for closed fracture; J96.02 Acute respiratory failure with hypercapnia; S22.058A Other fracture of T5-T6 vertebra, initial encounter for closed fracture; S22.068A Other fracture of T7-T8 thoracic vertebra, initial encounter for closed fracture; T79.7XXA Traumatic subcutaneous emphysema, initial encounter; S32.019A Unspecified fracture of first lumbar vertebra, initial encounter for closed fracture; S32.512A Fracture of superior rim of left pubis, initial encounter for closed fracture; F19.20 Other psychoactive substance dependence, uncomplicated; S22.078A Other fracture of T9-T10 vertebra, initial encounter for closed fracture; S32.302A Unspecified fracture of left ilium, initial encounter for closed fracture; S02.2XXA Fracture of nasal bones, initial encounter for closed fracture; S01.81XA Laceration without foreign body of other part of head, initial encounter; F17.210 Nicotine dependence, cigarettes, uncomplicated; F10.20 Alcohol dependence, uncomplicated; V48.6XXA Car passenger injured in noncollision transport accident in traffic accident, initial encounter; Y93.89 Activity, other specified; Y92.410 Unspecified street and highway as the place of occurrence of the external cause; Z59.0 Homelessness; Z66 Do not resuscitate; D64.9 Anemia, unspecified
CPT/HCPCS: 12011; 31500; 32551; 36430; 36556; 36600; 43753; 51702; 70450; 70486; 71010; 71260; 72125; 72128; 72131; 72170; 74177; 76000; 80048; 80053; 81001; 82435; 82550; 82552; 82565; 82805; 82947; 83735; 84100; 84132; 84295; 84520; 85007; 85014; 85018; 85025; 85027; 85610; 85730; 86403; 86850; 86900; 86901; 86920; 87040; 87070; 87077; 87086; 87147; 87184; 87185; 87186; 87205; 87641; 90471; 90715; 93005; 93306; 94002; 94003; 94150; 94640; 94664; 96374; 96375; 96376; 99291; C1713; C1769; C9113; G0390; J0330; J0690; J0692; J1120; J1170; J1580; J1650; J1885; J1956; J1980; J2060; J2250; J2270; J2370; J2405; J2543; J3010; J3370; J3411; J3480; J7030; J7040; J7050; J7120; P9016; P9045; Q9967